=== PATIENT | female | born 1955 | race Caucasian/White ===

== ENCOUNTER → 2020-08-28 11:23 | Outpatient (CLI) | payer OTHER, SELFPAY ==
--- NOTE | ~2020-08-28 | XR_ITS ---
EXAMINATION: XR abdomen/kub 1V INDICATION: Abdominal swelling TECHNIQUE: Supine views of the abdomen were obtained on 2 radiographs. COMPARISON: None FINDINGS: The bowel gas pattern is normal. No dilated loops of bowel are evident. There is an expecte d volume of colonic stool. No abnormal calcification is identified. 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 IMPRESSION: 1. No radiographic correlate for the patient's symptoms. Reviewed, dictated and finalized at location A. ROLS DESIGNER
--- NOTE | ~2020-08-28 | XR_ITS ---
EXAMINATION: XR chest 2V DATE: 08/28/2020 12:00 INDICATION: Shortness of breath. TECHNIQUE: Frontal and lateral views of the chest were obtained. COMPARISON: None. FINDINGS: Calcified left lung nodules are consistent with old granulomatous disease. No pleural effus ion or pneumothorax. The heart size is normal. IMPRESSION: 1. No acute cardiopulmonary disease. Reviewed, dictated and finalized at location B. OWCASE TURNER
== END ==
PROVIDERS: PCP Family Medicine; Visit Provider Pediatrics
DX: R06.02 Shortness of breath (principal); R19.00 Intra-abdominal and pelvic swelling, mass and lump, unspecified site
CPT/HCPCS: 71046; 74018

== ENCOUNTER → 2023-07-01 12:56 | Outpatient (CLI) | payer OTHER, SELFPAY ==
--- NOTE | ~2023-07-01 | MM_ITS ---
EXAMINATION: MM screening owen BI w jan HISTORY: Screening mammogram TECHNIQUE: Craniocaudal and mediolateral oblique 3-D tomosynthesis images were obtained and synthetic 2-D images were generated. CAD analysis was submitted and interpreted. COMPARISON: 03/04/2019 bilateral screening mammogram BREAST PARENCHYMAL COMPOSITION: There are scattered areas of fibroglandular density. FINDINGS: Interval new asymmetric irregular density in the posterior lower inner right breast. Diagno stic right mammogram and right breast ultrasound examination are recommended. Otherwise no suspicious mass, architectural distortion, malignant calcification, skin thickening or r etraction or significant new or developing density of either breast is detected. IMPRESSION: 1. New asymmetric irregular density in the posterior lower inner right breast 2. Diagnostic right mammogram and right breast ultrasound examination are recommended BI-RADS Category 0: Incomplete: Needs additional imaging evaluation. Reviewed, dictated and finalized at location A. IMPRESSION: 1. New asymmetric irregular density in the posterior lower inner right breast 2. Diagnostic right mammogram and right breast ultrasound examination are recom mended BI-RADS Category 0: Incomplete: Needs additional imaging evaluation.
--- NOTE | ~2023-07-01 | DEXA_ITS ---
Bone Density Report Name: SHARAN KLINE Age: 67 Sex: Female Ethnicity: White Date of : 1955 Indication: osteopenia; postmenopausal Referring Provider: EVE, MICHELLE Daly Study: Bone densitometry was performed. Exam Date: July 01, 2023 Accession number: [id number] Bone Density: Region BMD T-score Z-score Classification AP Spine (L1-L4) 0.869 -1.6 0.3 Osteopenia Femoral Neck (Left) 0.697 -1.4 0.2 Osteopenia Total Hip (Left) 0.848 -0.8 0.5 Normal Femoral Neck (Right) 0.719 -1.2 0.4 Osteopenia Total Hip (Right) 0.807 -1.1 0.2 Osteopenia Total Hip Mean 0.828 -1.0 0.4 Normal World Health Organization criteria for BMD impression classify patients as: Normal (T-score at or above -1.0), Osteopenia (T-score between -1.0 and -2.5), or Osteoporosis (T-score at or below -2.5). 10-year Fracture Risk(1): Major Osteoporotic Fracture 8.6% Hip Fracture 0.8% Reported Risk Factors: [place] (), Neck BMD=0.697, BMI=29.9 (1) FRAX(R) Version 3.08. Fracture probability calculated for an untreated patient. Fracture probability may be lower if the patient has received treatment. Previous Exams: Region Exam Age BMD T-score BMD Change BMD Change Date g/cm2 vs Baseline vs Previous AP Spine(L1-L4) 07/01/2023 67 0.869 -1.6 -0.036* -0.020 06/05/2011 55 0.889 -1.4 -0.016 -0.016 02/14/2008 52 0.905 -1.3 Total Hip(Left) 07/01/2023 67 0.848 -0.8 0.011 0.041* 06/05/2011 55 0.807 -1.1 -0.030* -0.030* 02/14/2008 52 0.837 -0.9 Total Hip(Right) 07/01/2023 67 0.807 -1.1 -0.043* -0.026 06/05/2011 55 0.833 -0.9 -0.017 -0.017 02/14/2008 52 0.850 -0.8 *Denotes significance at 95% confidence level, LSC for AP Spine = 0.022 g/cm2, LSC for Total Hip = 0.027 g/cm2 Clinical Information Provided by Patient: Has used the following medications: Vitamin D Patient maximum height was 67 Menopause Age: 50 No regular weight bearing exercise Drinks caffeinated beverages Onset of menses at age 16 Number of children 1 Impression: The patient has low bone mass, based on the Total Spine T-score. The patient has an estimated ten-year risk of hip fracture of 0.8% and an estimated ten-year risk of major fracture of 8.6%, based on the WHO FRAX algorithm. No significant bone loss was observed. Discussion: BONE DENSITY IS LOW A
== END ==
PROVIDERS: PCP Family Medicine; Visit Provider Nurse Practitioner Family
DX: Z12.31 Encounter for screening mammogram for malignant neoplasm of breast (principal); Z78.0 Asymptomatic menopausal state; M85.89 Other specified disorders of bone density and structure, multiple sites
CPT/HCPCS: 77063; 77067; 77080

== ENCOUNTER → 2023-07-28 07:37 | Outpatient (CLI) | payer OTHER, SELFPAY ==
--- NOTE | ~2023-07-28 | US_ITS ---
Pelvic ultrasound. Clinical History: Pelvic pressure Technique: Realtime transabdominal and transvaginal scanning of the pelvis was performed. Color flow Doppler and Doppler spectral analysis were performed. Findings: The uterus is anteverted, and measures 4.6 x 1.9 x 3.0 cm. The endometrial stripe has a th ickness of approximately 3-4 mm. No focal mass is identified. Neither ovary seen. No adnexal mass seen. There is no evidence of free fluid in the cul de sac. Impression: No significant abnormality seen. Neither ovary visualized. Reviewed, dictated and finalized at location . OLOGY PHYSICIAN Impression: No significant abnormality seen. Neither ovary visualized.
--- NOTE | ~2023-07-28 | MMUS_ITS ---
EXAMINATION: MM diagnostic owen RT w jan, US breast RT limited HISTORY: Follow-up right breast mass TECHNIQUE: Additional 3-D tomosynthesis images of the right breast were performed and synthetic 2-D i mages were generated. CAD analysis was submitted and interpreted. High resolution Limited right breas t ultrasound was performed. COMPARISON: Comparison to multiple prior studies sequentially, with oldest reviewed study dated 06/19. BREAST PARENCHYMAL COMPOSITION: Breast composed of scattered areas of fibroglandular density FINDINGS: MAMMOGRAPHIC FINDINGS: There is a mass in the lower inner quadrant of the right breast posteriorly which is partially obscur ed by fibroglandular tissue. There are no suspicious calcifications. There is an adjacent low density mass in the lower inner quadrant. ULTRASOUND: Limited right breast ultrasound: At 6:00, 4.5 cm from the nipple, there is an irregular shaped hypoec hoic solid mass with posterior shadowing measuring 1.3 x 1.1 x 0.9 cm. There is an adjacent 8 mm hypo echoic mass at 6:00, 2 cm from the nipple with internal vascularity. IMPRESSION: 1. Ultrasound-guided right breast biopsy of dominant 1.3 cm mass at 6:00, 4.5 cm from the nipple janna mmended. BI-RADS CATEGORY 4-SUSPICIOUS ABNORMALITY Reviewed, dictated and finalized at location A. HEATER IMPRESSION: 1. Ultrasound-guided right breast biopsy of dominant 1.3 cm mass at 6:00, 4.5 c m from the nipple recommended. BI-RADS CATEGORY 4-SUSPICIOUS ABNORMALITY
== END ==
PROVIDERS: PCP Nurse Practitioner Family; Visit Provider Nurse Practitioner Family
DX: Z01.419 Encounter for gynecological examination (general) (routine) without abnormal findings (principal); R92.8 Other abnormal and inconclusive findings on diagnostic imaging of breast; I10 Essential (primary) hypertension; R73.03 Prediabetes; R10.9 Unspecified abdominal pain; K21.9 Gastro-esophageal reflux disease without esophagitis
CPT/HCPCS: 76642; 76856; 77061; 77065; G0279

== ENCOUNTER 2023-08-09 08:54 | Outpatient (CLI) | payer OTHER, SELFPAY ==
--- NOTE | ~2023-08-09 | MMUS_ITS ---
EXAMINATION: US GUIDED NEEDLE BIOPSY DATE: 08/09/2023 11:40 AIR DRILL OPERATOR INDICATION: Right breast 6:00 breast mass reported on 07/28/2023 limited right breast ultrasound exami [facility] TECHNIQUE AND FINDINGS: The risks and potential benefits of the procedure were discussed with the patient, and written inform ed consent was obtained. Timeout procedure was performed. After sterile preparation of the right jacquelyn st, 1% lidocaine was utilized for local anesthesia. A 12 G spring-loaded biopsy gun needle was advanced to the edge of the region of interest from a supe romedial approach utilizing sonographic guidance. A total of 5 tissue core samples were obtained thr ough the lesion. An Inrad tissue marker clip was then placed at the biopsy site. Hemostasis was achi eved. A sterile bandage was applied. The patient tolerated procedure well and there was no evidence of immediate complication. The patien t was given verbal instructions prior to departing from the department. A two view mammogram was perf ormed to document tissue marker clip placement. The tissue samples were submitted to surgical patholo gy for histologic analysis. IMPRESSION: Ultrasound guided biopsy of right 6:00 breast mass with biopsy marker placement. Please refer to path ology report for histologic analysis. Reviewed, dictated and finalized at Location A. Reviewed, dictated and finalized at location A. DRILL OPERATOR IMPRESSION: Ultrasound guided biopsy of right 6:00 breast mass with biopsy marker placement . Please refer to pathology report for histologic analysis.
== END 2023-08-09 08:55 | disposition home or self-care (01) ==
PROVIDERS: PCP Nurse Practitioner Family; Visit Provider Surgery
DX: N63.15 Unspecified lump in the right breast, overlapping quadrants (principal); D05.11 Intraductal carcinoma in situ of right breast
CPT/HCPCS: 19083; 88305; 88342; 88360; A4648

== ENCOUNTER 2023-08-23 12:05 | Outpatient (CLI) | payer OTHER, SELFPAY ==
[2023-08-23 12:18] LABS: Kit Draw Collected
== END 2023-08-23 12:06 | disposition home or self-care (01) ==
LOC: ANHLAB 12:08
PROVIDERS: PCP Nurse Practitioner Family; Visit Provider Internal Medicine Hematology & Oncology
DX: C50.811 Malignant neoplasm of overlapping sites of right female breast (principal)
CPT/HCPCS: 36415

== ENCOUNTER 2023-10-20 10:39 | Outpatient (CLI) | payer OTHER, SELFPAY ==
--- NOTE | 2023-10-20 10:49 | ECG_ITS ---
Measurements Intervals [place] Rate: 74 P: 32 DE: 140 QRS: 3 QRSD: 104 T: 3 QT: 357 QTc: 396 Interpretive Statements SINUS RHYTHM MINIMAL VOLTAGE CRITERIA FOR LVH, CONSIDER NORMAL VARIANT [MEETS CRITERIA IN ONE OF: R(aVL), S(V1), R(V5), R(V5/V6)+S(V1)] NO PREVIOUS ECG AVAILABLE FOR COMPARISON Electronically Signed On 10-20-2023 14:05:35 NURSING CLINICAL DIRECTOR by Breann Boateng M.D.
[2023-10-20 11:10] LABS: Hematocrit 35.8 % (37.0-47.0); Hemoglobin 11.4 g/dL (12.0-15.0)
[2023-10-20 11:23] LABS: Anion Gap 9 mmol/L (8-16); Blood Urea Nitrogen 16 mg/dL (7-17); Calcium 9.6 mg/dL (8.4-10.2); Carbon Dioxide 32 mmol/L (22-30); Chloride 101 mmol/L (98-107); Estimated Glomerular Filt Rate 55; Glucose 111 mg/dL (65-110); Potassium 3.7 mmol/L (3.4-5.0); Sodium 142 mmol/L (137-145)
== END 2023-10-20 10:40 | disposition home or self-care (01) ==
LOC: ANHSURGERY 10:44
PROVIDERS: Anesthesiology; PCP Nurse Practitioner Family; Visit Provider Surgery
DX: Z01.818 Encounter for other preprocedural examination (principal); C50.911 Malignant neoplasm of unspecified site of right female breast; I10 Essential (primary) hypertension
CPT/HCPCS: 36415; 80048; 85014; 85018; 86850; 86900; 86901; 93005

== ENCOUNTER 2023-10-26 00:39 | Day surgery (SDC) | payer OTHER, SELFPAY ==
--- NOTE | 2023-10-14 15:43 | PC.NURSE ---
Report to the Outpatient Waiting Room, entrance under the green pavilion located off [facility], at time __0600 on date _10/26/23 . Planned Procedure Time: _0730 . Time changes happen often and if your time is changed the preop area will call you the afternoon before. - You and your visitor will be asked to self-screen and do not enter if you have any COVID symptoms. - A mask is optional within the hospital at this time. NOTHING TO EAT OR DRINK 8 HOURS PRIOR TO SURGERY PER DR CARLSON (1130 PM 10/25/23) Take the following medications with a SIP of water the morning of surgery: ____NONE DO NOT STOP ANY OF YOUR OTHER PRESCRIPTION MEDICATIONS PRIOR TO SURGERY ?EXCEPT THE FOLLOWING Medications to discontinue per physician NONE Please no make-up, nail bengali, hairspray, perfume, deodorant, or body powder the day of surgery. No jewelry (including any body piercings) or valuables the day of surgery, leave them at home. Please take a shower or bath the night before, or the morning of, surgery with an antibacterial soap. Wear comfortable, loose fitting clothing. Children are encouraged to wear pajamas. - Jewelry must be removed prior to entering the operating room. Rings and piercings that are not removed may be cut off. - The hospital will not accept responsibility for valuables. - Please leave all valuables, including medications, at home the day of surgery. If you are going home after surgery, a licensed trash collector truck driver must drive you home. - NO public transportation without another adult if you receive anesthesia. - We recommend that an adult stay with you for 24 hours following discharge. - We also recommend that you do not drive, make important decision, drink alcoholic beverages, or take any drugs that were not prescribed by your health care provider for at least 24 hours after your discharge time. Follow any additional instructions given to you from your surgeon. If you or anyone in your household have experienced Covid symptoms in the past week, please notify your surgeon or the nurse liaison at the phone number below for possible testing. Telephone instructions given to __PATIENT and asked if any additional questions and then verbalized understanding. Patient advised to call surgeon office or pre surgery nurse liaison [phone] if any additional questions.
[2023-10-14 16:01] VITALS: BMI 29.0
[2023-10-26] VITALS (13 sets, daily range): BP systolic 132–168; BP diastolic 54–78; PULSE 67–95; RESP 12–18; TEMP 36–37; O2SAT 94–100
[2023-10-26] MEDS: ACETAMINOPHEN 500 MG TABLET 1000 MG PO (06:17)
[2023-10-26] MEDS: LIDOCAINE/PRILOCAINE CREAM 2.5-2.5% TUBE 1 EACH TOPICAL (06:19)
--- NOTE | 2023-10-26 06:53 | WPDHPUPDATE1 ---
History and Physical Update Update Date/Time: 10/26/23 06:53 Patient seen and examined in pre-operative holding area. No interval change in medical history or symptoms. Patient remembers previous discussion of benefits and alternatives to procedure. Continues to desire to proceed with immediate bilateral breast reconstruction with silicone implants and acellular dermal matrix possible mastopexy possible tissue account executive sales representative at time of mastectomy. I reviewed the risks including but not limited to bleeding ,infection, asymmetry, undesireable cosmetic appearance, partial/total skin/nipple loss, no change or worsening of symptoms, device failure, capsular contracturechange in sensation. I discussed the possible use of assistants and their level of participation in the case. Patient stated understanding and signed the consent form wishing to proceed
--- NOTE | 2023-10-26 06:54 | W.PM.PROC2 ---
Procedure Note - Detailed Date of Procedure 10/26/23 Pre-op Diagnosis right breast cancer Post-op Diagnosis Same (and acquired absence bilateral breasts) Procedure Performed bilateral breast recon with silicone implant, adm and mastopexy at time of mastectomy Surgeon Jorge De La Cruz MD Vault Keeper Mireille Miller PA-C Anesthesia General Description of Procedure Patient seen and examined in pre-op and consent signed and patient marked with her sitting for planned mastopexy to allow reduction in breast volume and adjust nipple placement utilizing an inferior based pedicle. Patient was taken back to the operating room and placed on the table in supine posiition. Time out was performed with anesthesia, surgeons and staff agreeing on patient's name, site and surgery to be performed. SCDs were placed on the lower extremities and inflated. Antibiotics were given IV. After general anesthesia was administered the breasts were prepped and draped in sterile fashion. I proceeded with further designing the bilateral breast incisions for planned mastopexy and then care was given to Dr. Hernandez who proceeded with the left nipple-sparing mastectomy with the assistance of Mireille Miller PA-C and myself. After completion of mastectomy, I irrigated with normal saline and hemostasis was performed with bovie cautery. I proceeded with sewing in a piece of large, contoured, perforated alloderm along inframammary fold and along the anterior axillary line with 2-0 vicryl suture. Various breast implant sizers were placed and detemined an [id number] implant would be appropriate for patient's reconstructive goals and not put unnecessary tension or pressure on the skin flaps. The sizer was removed. A 10 MALISSA drain was placed along IMF and an onq pump catheter was placed along the superior aspect of the breast pocket. I irrigated the pocekt with antibiotic irrigation again, prepped the skin with betadine,placed down new towels, changed our gloves and rinsed instruments in antibiotic irrigation. I then proceeded with placing a natrelle [id number]-[id number] implant SN [id number] into the left breast pocket in appropriate orientation and near complete anterior coverage with the alloderm. I proceeded with initial closure and tacking using 3-0 vicryl. Next, I proceeded with further creation of the mastopexy by marking and excising further skin and subcutaneous tissue on the superior skin flap to allow for superior placement of the nipple areolar complex which appeared viable on its inferior pedicle with good cap refill. I excised the redunant skin as marked and extended medially and laterally to further remove dog ears. This was sent for further pathology. The nipple was placed at 23cm from the sternal notch along the breast midline at prominent aspect of implant. The skin flaps were secured with 3-0 vicryl suture. To further support the nipple viability I de-epithelilized a semicircular pedicle on the superior skin flap and the NAC was sutured to this with 3-0 vircryl stuture. 4-0 monocryl was used for subcuticular closure. The drain was hooked to bulb suction and initial 10cc loading dose of 1%lido with epi and 0.5%marcaine plain was infused through the onq catheter. Next, Dr. Hernandez proceeded with the right sentinel lymph node biopsy and right mastectomy with the assistance of Mireille Miller PA-C and myself. After completion of the right nipple-sparing mastectomy, I irrigated with normal saline and hemostasis was performed with bovie cautery. I proceeded with sewing in a piece of large, contoured, perforated alloderm along inframammary fold and along the anterior axillary line with 2-0 vicryl suture. The [id number] cc sizer was placed and there appeared to be good placement and reasonable symmetry to the reconstructed left breast. The sizer was removed. A 10 MALISSA drain was placed along IMF and an onq pump catheter was placed along the superior aspect of the breast pocket. I irrigated the pocket wit
--- NOTE | 2023-10-26 06:56 | WPDANESEPPF ---
Anes - Initial Pre Proc Eval Procedure: Operation Date: 10/26/23 07:30 Proposed Procedures p Bilateral Nipple Sparing Mastectomy, [place] Lymph Node Injection, Right Axillary [place] Lymph Node Biopsy - Noelle Hernandez MD s Immediate Bilateral Breast Reconstruction with Silicone Implants, Accellular Dermal Matrix, Possible Tissue Hearing Health Technician Placement - Jorge De La Cruz MD Date/Time: 10/26/23 06:56 Surgeon: Noelle Hernandez MD Pre Op Diagnosis: breast CA Patient Data Age: 67 Gender: F Height: 1.68 m Weight: 81.7 kg Last Vital Signs Temp 98.6 F 10/26/23 06:37 Pulse 90 10/26/23 06:37 Resp 16 10/26/23 06:37 BP 152/60 H 10/26/23 06:37 Pulse Ox 99 10/26/23 06:37 O2 Del Method Room Air 10/26/23 06:37 Allergies Allergy/AdvReac Type Severity Reaction Status Date / Time Sulfa (Sulfonamide Allergy Severe Itching Verified 10/26/23 06:04 Antibiotics) aspirin Allergy Unknown Palpitation Verified 10/26/23 06:04 s Home Medications Medication Instructions Recorded Confirmed Type hydrochlorothiazide 12.5 mg tablet 12.5 mg PO DAILY 08/16/23 10/26/23 History losartan 100 mg tablet 100 mg PO DAILY 08/16/23 10/26/23 History omeprazole 40 mg capsule,delayed 40 mg PO DAILY 08/16/23 10/26/23 History release Patient hx anesthesia problems: post op nausea/vomiting Family hx anesthesia problems: none Results Review: All pre-operative results and documents have been reviewed as part of the pre-operative evaluation. [facility] Family History Family History (Updated 05/16/14 @ 07:13 by DOCTOR UNKNOWN) Grandparent Family history of malignant neoplasm Father Family history of coronary artery disease Mother Family history of atrial fibrillation Social History Social History (Updated 08/02/23 @ 09:10 by Stefani Parker MA) Smoking packs per day: 1 Smoking cigarettes per day: 20.0 Years smoked: 25 Smoking pack-years: 25.00 Smoking status: Former smoker Tobacco type: cigarettes Smoking end date: 09/19/89 Alcohol intake: never Lack of Transportation: No Lack of Food: Never True Concerned About Future Housing: No Difficulty Paying Gas/Electric Bills: No Difficulty Paying for Meds: No Currently Unemployed: No Education: Decline to Answer Difficulty w/ Childcare or Family Care: No Living arrangements: with family Spiritual care concerns: No Anes - Eval Final PreProcedure Day of Procedure 10/26/23 06:56 Patient weight: normal Heart: regular rate and rhythm Lungs: clear to auscultation Airway: Mallampati scale class II Neurological: alert and oriented Last oral intake: >/= 8 hours ASA classification: III Emergent: no Anesthetic plan: proceed Anesthesia type and monitoring: general ETT and standard monitoring Results Review: All pre-operative results and documents have been reviewed as part of the pre-operative evaluation. Informed Consent: The patient's anesthetic plan and its attendant risks and benefits were discussed with the patient/family/POA. Questions were solicited and answers provided to the satisfaction of the patient/family/POA.
--- NOTE | 2023-10-26 07:07 | WPDHPUPDATE1 ---
History and Physical Update Update Date/Time: 10/26/23 07:07 History and Physical has been reviewed, including an updated exam of the patient. There are NO changes in the patient's condition. Risks, benefits, and alternatives have been discussed and questions answered. Patient agrees to proceed with procedure.
[2023-10-26] MEDS: LACTATED RINGERS 1,000 ML 30 ML IV CONT ×3 (07:10→13:25)
[2023-10-26] MEDS: SCOPOLAMINE 1 MG PATCH 1 PATCH TRANSDERM (07:10)
[2023-10-26] MEDS: ceFAZolin 2 GM/D5W 50 ML 2 GM/50 ML BAG IVPB (07:43)
[2023-10-26] MEDS: METHYLENE BLUE 0.5% INJ 10 ML AMPULE IRRIGATION (07:51)
[2023-10-26] MEDS: BUPivacaine HCL 0.25% PF 30 ML VIAL INFILTRATE (08:09)
[2023-10-26] MEDS: NACL 0.9% IRRIG POUR BOTTLE 1,000 ML, GENTAMICIN SULFATE INJ 160 MG, ceFAZolin 2 GM IRRIGATION (08:10)
[2023-10-26] MEDS: LIDO 1%/EPINEPHRINE 1:100,000 50 ML VIAL 30 ML INFILTRATE (08:24)
--- NOTE | 2023-10-26 08:47 | SUR.OPER ---
LEFT BREAST START 08
--- NOTE | 2023-10-26 09:20 | SUR.OPER ---
0919 right breast with sentimag probe per Dr David keller.
--- NOTE | 2023-10-26 11:03 | SUR.OPER ---
left breast scf 415 exp 2028-04-11 [id number] destin heredia
--- NOTE | 2023-10-26 11:19 | W.PM.PROC2 ---
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 Right nipple sparing mastectomy 2. Prophylactic left nipple sparing mastectomy 3. Right sentinel lymph node injection with magtrace and methylene blue 4. Right sentinel lymph node biopsy Surgeon Noelle Hernandez MD Eyewear Manufacturing Tech Mireille Miller PA-C Anesthesia General Description of Procedure Patient was identified in the preoperative holding area brought to the operating room suite.? She was placed supine operating table sequential compression devices were applied. General anesthesia was induced without difficulty.?The right nipple areola area was prepped with alcohol and I injected 2 cc of Mag trace in the subareolar plane.? I also injected 2 cc of diluted methylene blue 50:50 in the subdermal plane of the periareola area.? Bilateral chest and right axillary areas were prepped draped in sterile fashion.? Decision was made to start with the left prophylactic side.? A adams hole transverse incision around the superior aspect of the nipple areolar complex was made as previously marked by Dr De La Cruz and dissection was carried down through the subcutaneous tissue and continued through the thin areolar tissue plane between the subcutaneous tissue with the breast tissue superiorly to the inferior border of the clavicle.? We then continued our dissection medially to the lateral aspect of the sternum, inferiorly to the inframammary fold and laterally to latissimus.? Once this was performed the breast tissue along with the pectoralis fascia was dissected off the pectoralis muscle posteriorly.? The mastectomy specimen was then marked short stitch superior long stitch lateral stitch lateral, and subareolar region inked for orientation.? The specimen was then sent to pathology as a fresh specimen.? Hemostasis was assured.? Attention was then turned to the right axilla.? The sentimag probe was used to find the area of highest radio activity in the right axilla, but no significant activity was detected.?A small curvilinear incision was made overlying the axillary region and dissection was carried down through the subcutaneous tissue and the clavipectoral fascia was incised.? I was able to identify a node that was blue.? This was gently grasped and excised using the LigaSure device, and sent to pathology as a permanent specimen.? No suspicious/enlarged lymph nodes were found, and the axilla was irrigated and hemostasis was assured.? The clavipectoral fascia was approximated with a running 3-0 Vicryl.? A adams hole superior areolar incision was again made around the right nipple areola area, and dissection was carried down to the subcutaneous tissue until the thin areolar tissue plane was encountered.? This was then dissected superiorly to the inferior aspect of the clavicle, medially to the lateral aspect of the sternum, laterally to the latissimus dorsi, and inferiorly to the inframammary fold.? The breast along with the pectoralis fascia was then dissected off the pectoralis muscle and the specimen was oriented with a short stitch superiorly, long stitch laterally, and subareolar region inked, and sent to pathology as the fresh specimen.? Hemostasis was assured.?The case was then turned over to Dr De La Cruz for the immediate reconstruction part. Please refer to his operative note for further details. All needles counts were correct as reported by the operating room staff. Patient tolerated the procedure well with no immediate complications. Estimated Blood Loss 40 Drains Yes Pathology Yes Complications No immediate complications Condition Stable Disposition PACU [facility] Billing Surgery - Charge Forward: Surgery Billing (CPT 92748 - RT, 26834 - 60, LT / [id number] / [id number])
[2023-10-26] MEDS: ceFAZolin SODIUM 1 GM VIAL IV PUSH (11:41)
--- NOTE | 2023-10-26 12:35 | SUR.OPER ---
PAIN PUMP WITH LEAK AND PHARMACY NOTIFIED/TO REPLACE ON-Q BALL PUMP IN PACU AND PACU AWARE.
[2023-10-26] MEDS: fentaNYL CITRATE INJ (*CRX) 100 MCG/2 ML VIAL 25 MCG IV PUSH ×4 (13:07→14:04)
[2023-10-26] MEDS: HYDROmorphone HCL INJ (*CRX) 1 MG/ML SYR IV PUSH (15:36)
[2023-10-26] MEDS: LACTATED RINGERS 1,000 ML 100 ML IV CONT (15:42)
[2023-10-27 00:42] VITALS: BP 147/68; PULSE 79; RESP 16; TEMP 36.7; O2SAT 96
[2023-10-27 05:00] VITALS: PULSE 86; RESP 16; O2SAT 95
[2023-10-27 05:36] VITALS: BP 137/63; PULSE 86; RESP 16; TEMP 36.9; O2SAT 95
[2023-10-27 07:40] VITALS: BP 147/69; PULSE 82; RESP 18; TEMP 37.3; O2SAT 97
[2023-10-27] MEDS: DOCUSATE SODIUM 100 MG CAPSULE PO (09:30)
[2023-10-27] MEDS: hydroCHLOROthiazide 12.5 MG CAPSULE PO (09:30)
[2023-10-27] MEDS: PANTOPRAZOLE 40 MG TABLET PO (09:30)
[2023-10-27] MEDS: LOSARTAN POTASSIUM 100 MG TABLET PO (09:30)
[2023-10-27] MEDS: CEPHALEXIN 500 MG CAPSULE PO (09:30)
== END 2023-10-27 12:30 | disposition home or self-care (01) ==
LOC: ANHSURGERY 14:04 → ANHOB2 15:04
PROVIDERS: Plastic Surgery; PCP Nurse Practitioner Family; Visit Provider Surgery
PROC: (CPT 19303; principal; 2023-10-26 07:30)
PROC: (CPT 19340; 2023-10-26 07:30)
DX: C50.911 Malignant neoplasm of unspecified site of right female breast (principal); D05.11 Intraductal carcinoma in situ of right breast; Z87.891 Personal history of nicotine dependence
CPT/HCPCS: 19303; 38900; 38525; 19340; 19316; 15777 ×2; 36415; 80048; 85014; 85018; 86850; 86900; 86901; 88305; 88307; 88342; 93005; 99199; A9270; C1713; J0330; J0690; J1100; J1170; J1200; J1580; J2250; J2405; J2704; J3010; J7120; Q9968

== ENCOUNTER 2023-12-08 08:59 | Day surgery (SDC) | payer OTHER, SELFPAY ==
[2023-12-08] VITALS (7 sets, daily range): BP systolic 110–152; BP diastolic 53–89; PULSE 59–100; RESP 12–16; TEMP 36.2–37.4; O2SAT 98–100
--- NOTE | 2023-12-08 10:00 | ED.WOUNDLAC ---
HPI - Wound/Laceration General Chief Complaint: Wound/Laceration <Desi Serrano PA-C - Last Filed: 12/08/23 11:15> Stated Complaint: POST OP WOUND <FIDEL Henley Last Filed: 12/08/23 11:15> Time Seen by Provider: 12/08/23 09:33 <FIDEL Henley Last Filed: 12/08/23 11:15> Source: patient and old records reviewed <FIDEL Henley Last Filed: 12/08/23 11:15> Mode of arrival: ambulatory <FIDEL Henley Last Filed: 12/08/23 11:15> Limitations: no limitations <FIDEL Henley Last Filed: 12/08/23 11:15> History of Present Illness HPI narrative: Patient is a 68-year-old female who presents the ED with report of wounds to breast. Patient reports she underwent bilateral mastectomy for breast CA on 10/[address] Hernandez with reconstructive surgery under Dr. De La Cruz. On Tuesday this past week, patient began noticing a pinhole opening along her surgical side of her left breast with some purulent drainage. She has followed up with Dr. De La Cruz this week and is scheduled to undergo repeat surgery today at 12:45 p.m. for debridement. Patient states there was issues with the insurance approving the surgery and she was referred to the ED for evaluation. Patient has also noticed a small wound to R lateral breast surgical incision. Denies fevers, chills, N/V, dizziness/LH. Patient has been on keflex for wounds. Taking this as prescribed. <FIDEL Henley Last Filed: 12/08/23 11:15> Related Data Home Medications: Home Medications Medication Instructions Recorded Confirmed hydrochlorothiazide 12.5 mg tablet 12.5 mg PO QAM 08/16/23 12/08/23 losartan 100 mg tablet 100 mg PO QAM 08/16/23 12/08/23 omeprazole 40 mg capsule,delayed 40 mg PO QAM 08/16/23 12/08/23 release <Desi Serrano PA-C - Last Filed: 12/08/23 11:15> Allergies/Adverse Reactions: Allergies Allergy/AdvReac Type Severity Reaction Status Date / Time Sulfa (Sulfonamide Allergy Severe Itching Verified 12/08/23 12:03 Antibiotics) aspirin Allergy Unknown Palpitation Verified 12/08/23 12:03 s <Desi Serrano PA-C - Last Filed: 12/08/23 11:15> Review of Systems Review of Systems: CONSTITUTIONAL: Denies fever, chills, or sweats. GASTROINTESTINAL: Denies abdominal pain, nausea, vomiting SKIN: See HPI MUSCULOSKELETAL: Denies back pain, extremity pain, myalgia. 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 ductal carcinoma of right breast <Desi Serrano PA-C - Last Filed: 12/08/23 11:15> Surgical History Surgical History: Surgical History History of mastectomy <Desi Serrano PA-C - Last Filed: 12/08/23 11:15> Family History Family History: Family History Grandparent Family history of malignant neoplasm Father Family history of coronary artery disease Mother Family history of atrial fibrillation <FIDEL Henley Last Filed: 12/08/23 11:15> Social History Social History: Social History Smoking packs per day: 0.5 Smoking cigarettes per day: 10.0 Years smoked: 19 Smoking pack-years: 9.50 Smoking status: Former smoker Tobacco type: cigarettes Smoking end date: 03/19/95 Alcohol intake: never Substance use: never Substance use type: does not use Lack of Transportation: No Lack of Food: Never True Concerned About Future Housi
[2023-12-08 11:09] LABS: Basophils Absolute Auto 0.1 K/mm3 (0.0-0.1); Basophils Percent Auto 0.7 % (0.2-1.2); Eosinophils Absolute Auto 0.1 K/mm3 (0-0.3); Eosinophils Percent Auto 1.7 % (0-4.4); Hematocrit 34.7 % (37.0-47.0); Hemoglobin 11.1 g/dL (12.0-15.0); Immature Granulocyte Absolute 0.03 K/mm3 (0.00-0.031); Immature Granulocyte Percent A 0.4 % (0-0.5); Lymphocytes Absolute Auto 1.32 K/mm3 (0.9-3.2); Lymphocytes Percent Auto 15.6 % (18.3-44.2); Mean Corpuscular Hemoglobin 29.3 pg (26-34); Mean Corpuscular Volume 91.6 fl (80-100); Mean Platelet Volume 9.3 fl (7.4-10.4); Monocytes Absolute Auto 0.6 K/mm3 (0.1-0.6); Monocytes Percent Auto 6.9 % (2.6-8.5); Neutrophils Absolute Auto 6.3 K/mm3 (1.3-6.7); Neutrophils Percent Auto 74.7 % (45.5-73.1); Platelet Count Result 287 k/mm3 (150-375); Red Blood Count 3.79 M/mm3 (4.2-5.4); Red Cell Distribution Width 13.5 % (11.5-14.5); White Blood Count 8.4 K/mm3 (4.5-10.0)
[2023-12-08 11:13] LABS: Alanine Aminotransferase 15 U/L (6-35); Albumin Level 4.3 g/dL (3.5-5.1); Alkaline Phosphatase 102 U/L (38-126); Anion Gap 3 mmol/L (8-16); Aspartate Amino Transferase 24 U/L (14-36); Bilirubin,Total 0.6 mg/dL (0.2-1.3); Blood Urea Nitrogen 15 mg/dL (7-17); Calcium 9.9 mg/dL (8.4-10.2); Carbon Dioxide 32 mmol/L (22-30); Chloride 105 mmol/L (98-107); Estimated CRCL calculation 43 ml/min; Estimated Glomerular Filt Rate 45; Glucose 116 mg/dL (65-110); INR 0.9; Potassium 3.5 mmol/L (3.4-5.0); Sodium 140 mmol/L (137-145)
[2023-12-08 11:14] LABS: Partial Thromboplastin Time 29.3 Seconds (22.3-36.8)
--- NOTE | 2023-12-08 12:08 | WPDHPUPDATE1 ---
History and Physical Update Update Date/Time: 12/08/23 12:08 Patient seen and examined in pre-operative holding area. No interval change in medical history or symptoms. Patient remembers previous discussion of benefits and alternatives to procedure. Continues to desire to proceed with left breast wound debridement, washout, possible implant removal/exchange and possible adjacent tissue transfer. I reviewed the risks including but not limited to bleeding ,infection, asymmetry, undesireable cosmetic appearance, partial/total skin/nipple loss, no change or worsening of symptoms, change in sensation. I discussed the possible use of assistants and their level of participation in the case. Patient stated understanding and signed the consent form wishing to proceed
--- NOTE | 2023-12-08 12:09 | P.OP_ITS ---
Procedure Note - Detailed Date of Procedure 12/08/23 Pre-op Diagnosis left breast wound and acquired absence left breast Post-op Diagnosis Same Procedure Performed left breast wound debridement, washout, implant exchange and local flap closure. Surgeon Jorge De La Cruz MD Detail Assembler Mireille Miller PA-C Anesthesia General Description of Procedure Patient was seen and examined in the preoperative holding area. The left breast was marked. The patient was consented. The patient was taken back to the operating room and placed on the table in the supine position. Time-out was performed with Anesthesia, surgeon, and staff agreeing on patient's names, site, and surgery to be performed. SCDs were placed on the lower extremities and inflated. Antibiotics were given IV. After general anesthesia was administered the breasts were prepped and draped in usual sterile fashion. I took my attention to the left breast where I used a 15 blade scalpel to make the incision around the nonviable eschar and affected tissue. It was noted that this involved the entire nipple-areolar complex which was nonviable. I excised this tissue back to healthy bleeding skin flaps. This consisted of skin and subcutaneous tissue. The implant was visible beneath this. There was a small 5-6 cm section of non adherent AlloDerm also visible underneath the non viable tissue. This unincorporated AlloDerm was sharply debrided. The intact silicone implant was removed. I proceeded with copious irrigation of the left breast pocket with antibiotic irrigation. The remainder of the AlloDerm appeared to be well incorporated. The new skin flap edges appeared healthy and viable with bleeding edges. I prepped the skin with Betadine and placed down fresh towels. Our gloves were changed and fresh instruments were then used. I proceeded with taking a Natgrzegorze [id number]-415 implant serial number [id number] directly from the package after rinsing in antibiotic irrigation placing it in its appropriate position in the left breast pocket. In order to reduce tension on closure I rotated the inferior skin flap laterally to improve closure at the defect site of the non- viable nipple areolar complex debridement site which had measured 4x5cm. I sharply excised the resulting dog ear so the flap could lie flat and bovie cautery for hemostasis. The wound was closed with 3-0 vicryl for dermis and 4-0 monocryl for subcuticular followed by 3-0 nylon interrupted along the incision for extra reinforcement. I injected 20cc 1%lido with epi and0.5%marcaine plain along anterior axillary line and inferior mammary fold. A dressing of mastisol, steri-strip, 4x4, abd and breast binder was applied. The patient was awaken from anesthesia and transferred to the recovery room in stable condition. Complications: None Estimated blood loss 5 cc Disposition: Patient tolerated the procedure well and will be going home later today Mireille Miller PA-C was essential for positioning, retraction, closure and dressing placement [facility] [place] - Charge Forward: Surgery Billing ([id number] amd for mireille adding modifier )
[2023-12-08] MEDS: LACTATED RINGERS 1,000 ML 30 ML IV CONT (12:36)
--- NOTE | 2023-12-08 12:48 | WPDANESEPP ---
Anes - Eval Pre Procedure Procedure: Operation Date: 12/08/23 12:45 Proposed Procedures p Left Breast Wound Debridement, Possible Implant Removal/Replacement, Possible Adjacent Tissue Transfer - Jorge De La Cruz MD Date/Time: 12/08/23 12:48 Surgeon: Dorothy Pre Op Diagnosis: POST OP WOUND Patient Data Age: 68 Gender: F Height: 1.68 m Weight: 79 kg Last Vital Signs Temp 37.4 C 12/08/23 12:28 Pulse 74 12/08/23 12:28 Resp 16 12/08/23 12:28 BP 123/53 L 12/08/23 12:28 Pulse Ox 99 12/08/23 12:28 O2 Del Method Room Air 12/08/23 12:28 Allergies Allergy/AdvReac Type Severity Reaction Status Date / Time Sulfa (Sulfonamide Allergy Severe Itching Verified 12/08/23 12:03 Antibiotics) aspirin Allergy Unknown Palpitation Verified 12/08/23 12:03 s Home Medications Medication Instructions Recorded Confirmed Type hydrochlorothiazide 12.5 mg tablet 12.5 mg PO QAM 08/16/23 12/08/23 History losartan 100 mg tablet 100 mg PO QAM 08/16/23 12/08/23 History omeprazole 40 mg capsule,delayed 40 mg PO QAM 08/16/23 12/08/23 History release cephalexin 500 mg capsule 500 mg PO Q8H #30 caps 12/05/23 12/08/23 Rx Laboratory Tests 12/08/23 10:50 WBC 8.4 K/mm3 (4.5-10.0) RBC 3.79 L M/mm3 (4.2-5.4) Hgb 11.1 L g/dL (12.0-15.0) Hct 34.7 L % (37.0-47.0) MCV 91.6 fl (80-100) MCH 29.3 pg (26-34) MCHC 32.0 g/dl (32-36) RDW 13.5 % (11.5-14.5) Plt Count 287 k/mm3 (150-375) MPV 9.3 fl (7.4-10.4) Immature Gran % (Auto) 0.4 % (0-0.5) Neut % (Auto) 74.7 H % (45.5-73.1) Lymph % (Auto) 15.6 L % (18.3-44.2) Dooly % (Auto) 6.9 % (2.6-8.5) Eos % (Auto) 1.7 % (0-4.4) Baso % (Auto) 0.7 % (0.2-1.2) Lymph # (Auto) 1.32 K/mm3 (0.9-3.2) Dooly # (Auto) 0.6 K/mm3 (0.1-0.6) Eos # (Auto) 0.1 K/mm3 (0-0.3) Baso # (Auto) 0.1 K/mm3 (0.0-0.1) Abs Immat Gran (auto) 0.03 K/mm3 (0.00-0.031) Absolute Neuts (auto) 6.3 K/mm3 (1.3-6.7) Absolute Nucleated RBC 0.000 K/mm3 (0.0-0.012) Nucleated RBC % 0.0 % (0.0-0.2) PT 13.0 Seconds (11.1-14.7) INR 0.9 APTT 29.3 Seconds (22.3-36.8) Sodium 140 mmol/L (137-145) Potassium 3.5 mmol/L (3.4-5.0) Chloride 105 mmol/L (98-107) Carbon Dioxide 32 H mmol/L (22-30) Anion Gap 3 L mmol/L (8-16) BUN 15 mg/dL (7-17) Creatinine 1.20 H mg/dL (0.7-1.0) Estim Creat Clear Calc 43 ml/min Estimated GFR 45 L (59 - ) Glucose 116 H mg/dL (65-110) Calcium 9.9 mg/dL (8.4-10.2) Total Bilirubin 0.6 mg/dL (0.2-1.3) AST 24 U/L (14-36) ALT 15 U/L (6-35) Alkaline Phosphatase 102 U/L (38-126) Total Protein 8.0 g/dL (6.3-8.2) Albumin 4.3 g/dL (3.5-5.1) Blood Type O Positive Antibody Screen Negative Patient hx anesthesia problems: none Family hx anesthesia problems: none Results Review: All pre-operative results and documents have been reviewed as part of the pre-operative evaluation. 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
--- NOTE | 2023-12-08 12:55 | P.PNAN_ITS ---
Anes - Eval Final PreProcedure Day of Procedure 12/08/23 12:55 Patient weight: overweight Heart: regular rate and rhythm Lungs: clear to auscultation Airway: Mallampati scale class II Neurological: alert and oriented Last oral intake: >/= 8 hours ASA classification: III Emergent: no Anesthetic plan: proceed Anesthesia type and monitoring: general LMA and standard monitoring Results Review: All pre-operative results and documents have been reviewed as part of the pre- operative evaluation. Informed Consent: The patient's anesthetic plan and its attendant risks and benefits were discussed with the patient/family/POA. Questions were solicited and answers provided to the satisfaction of the patient/family/POA.
[2023-12-08] MEDS: ceFAZolin 2 GM/D5W 50 ML 2 GM/50 ML BAG IVPB (13:02)
[2023-12-08] MEDS: NACL 0.9% IRRIG POUR BOTTLE 1,000 ML, GENTAMICIN SULFATE INJ 160 MG, ceFAZolin 2 GM IRRIGATION (13:49)
[2023-12-08] MEDS: LIDO 1%/EPINEPHRINE 1:100,000 50 ML VIAL 20 ML INFILTRATE (13:50)
--- NOTE | 2023-12-08 14:28 | SUR.PHASEI ---
1427: Simple mask removed.
== END 2023-12-08 15:37 | disposition home or self-care (01) ==
LOC: ANHED 11:03 → ANHSURGERY 12:32
PROVIDERS: Emergency Provider Physician Assistant; PCP Nurse Practitioner Family; Visit Provider Plastic Surgery
PROC: (CPT 19380; principal; 2023-12-08 12:45)
DX: T81.31XA Disruption of external operation (surgical) wound, not elsewhere classified, initial encounter (principal); Y83.8 Other surgical procedures as the cause of abnormal reaction of the patient, or of later complication, without mention of misadventure at the time of the procedure; Z90.10 Acquired absence of unspecified breast and nipple; Z85.3 Personal history of malignant neoplasm of breast; Z87.891 Personal history of nicotine dependence
CPT/HCPCS: 19380; 14001; 36415; 80053; 85025; 85610; 85730; 86850; 86900; 86901; 88300; 88305; 99285; A9270; C1789; J0690; J1580; J7120

== ENCOUNTER 2023-12-22 00:30 | Day surgery (SDC) | payer OTHER, SELFPAY ==
--- NOTE | 2023-12-20 15:42 | PC.NURSE ---
Report to the Outpatient Waiting Room, entrance under the green pavilion located off [facility], at time ___11:30AM____ on date __12/22/23 . Planned Procedure Time: __1:30PM . Time changes happen often and if your time is changed the preop area will call you the afternoon before. - You and your visitor will be asked to self-screen and do not enter if you have any COVID symptoms. - A mask is optional within the hospital at this time. Patients may have clear liquids (water, carbonated beverages, clear teas, apple juice) until 3 hours prior to surgery with a maximum of 20 ounces. - No food from midnight until time of surgery - Infants may have breast milk until 4 hours before surgery, infant formula 6 hours prior to surgery. - Children will be allowed to drink immediately following surgery. If applicable, please bring a bottle or sippy cup to assist with drinking. Juice, water, soda, and popsicles are readily available. For infants on formula, please bring formula the day of surgery. Pacifiers are allowed. Take the following medications with a SIP of water the morning of surgery: ___CEPHALEXIN DO NOT STOP ANY OF YOUR OTHER PRESCRIPTION MEDICATIONS PRIOR TO SURGERY ?EXCEPT THE FOLLOWING Medications to discontinue per physician ____NONE Date to take last dose Please no make-up, nail yakut, hairspray, perfume, deodorant, or body powder the day of surgery. No jewelry (including any body piercings) or valuables the day of surgery, leave them at home. Please take a shower or bath the night before, or the morning of, surgery with an antibacterial soap. Wear comfortable, loose fitting clothing. Children are encouraged to wear pajamas. - Jewelry must be removed prior to entering the operating room. Rings and piercings that are not removed may be cut off. - The hospital will not accept responsibility for valuables. - Please leave all valuables, including medications, at home the day of surgery. If you are going home after surgery, a licensed [employer] aut[employer] delivery driver must drive you home. - NO public transportation without another adult if you receive anesthesia. - We recommend that an adult stay with you for 24 hours following discharge. - We also recommend that you do not drive, make important decision, drink alcoholic beverages, or take any drugs that were not prescribed by your health care provider for at least 24 hours after your discharge time. For Pediatric surgeries, we recommend two adults accompany the child home. Follow any additional instructions given to you from your surgeon. If you or anyone in your household have experienced Covid symptoms in the past week, please notify your surgeon or the nurse liaison at the phone number below for possible testing. Telephone instructions given to ___PATIENT and asked if any additional questions and then verbalized understanding. Patient advised to call surgeon office or pre surgery nurse liaison [phone] if any additional questions.
[2023-12-22] VITALS (10 sets, daily range): BP systolic 110–151; BP diastolic 50–75; PULSE 60–82; RESP 12–20; TEMP 36.7–36.9; O2SAT 96–100
--- NOTE | 2023-12-22 08:57 | WPDANESEPPF ---
Anes - Initial Pre Proc Eval Procedure: Operation Date: 12/22/23 13:30 Proposed Procedures p Right Breast Wound Debridement, Possible Implant Removal/Replacement, Possible Adjacent Tissue Transfer - Jorge De La Cruz MD Date/Time: 12/22/23 08:57 Surgeon: Jorge De La Cruz MD Pre Op Diagnosis: open wound right breast with complications Patient Data Age: 68 Gender: F Height: Weight: Allergies Allergy/AdvReac Type Severity Reaction Status Date / Time Sulfa (Sulfonamide Allergy Severe Itching Verified 12/22/23 11:44 Antibiotics) aspirin Allergy Unknown Palpitation Verified 12/22/23 11:44 s Home Medications Medication Instructions Recorded Confirmed Type hydrochlorothiazide 12.5 mg tablet 12.5 mg PO QAM 08/16/23 12/22/23 History losartan 100 mg tablet 100 mg PO QAM 08/16/23 12/22/23 History omeprazole 40 mg capsule,delayed 40 mg PO QAM 08/16/23 12/22/23 History release hydrocodone 5 mg-acetaminophen 325 1 tablet PO Q8H PRN pain #6 tabs 12/08/23 12/20/23 Rx mg tablet cephalexin 500 mg capsule 500 mg PO Q8H #30 caps 12/12/23 12/22/23 Rx Patient hx anesthesia problems: none Family hx anesthesia problems: none Results Review: All pre-operative results and documents have been reviewed as part of the pre-operative evaluation. [facility] Past Medical History Medical History (Updated 12/22/23 @ 08:58 by Ramesh Gunter DO) Ductal carcinoma in situ (DCIS) of right breast GERD (gastroesophageal reflux disease) Invasive ductal carcinoma of right breast Panic attack Surgical History Surgical History (Updated 12/22/23 @ 08:58 by Ramesh Gunter DO) History of History of mastectomy Family History Family History Grandparent Family history of malignant neoplasm Father Family history of coronary artery disease Mother Family history of atrial fibrillation Social History Social History Smoking packs per day: 0.5 Smoking cigarettes per day: 10.0 Years smoked: 10 Smoking pack-years: 5.00 Smoking status: Former smoker Tobacco type: cigarettes Smoking end date: 03/19/92 Alcohol intake: never Substance use: never Substance use type: does not use Lack of Transportation: No Lack of Food: Never True Concerned About Future Housing: No Difficulty Paying Gas/Electric Bills: No Difficulty Paying for Meds: No Currently Unemployed: No Education: Decline to Answer Difficulty w/ Childcare or Family Care: No Living arrangements: with family Additional living arrangements comments: [facility]USB Spiritual care concerns: No Anes - Eval Final PreProcedure Day of Procedure 12/22/23 08:57 Patient weight: obese Heart: regular rate and rhythm Lungs: clear to auscultation Airway: Mallampati scale class III Neurological: alert and oriented Last oral intake: >/= 8 hours ASA classification: III Emergent: no Anesthetic plan: proceed Anesthesia type and monitoring: general LMA and standard monitoring Results Review: All pre-operative results and documents have been reviewed as part of the pre-operative evaluation. Informed Consent: The patient's anesthetic plan and its attendant risks and benefits were discussed with the patient/family/POA. Questions were solicited and answers provided to the satisfaction of the patient/family/POA.
[2023-12-22] MEDS: LACTATED RINGERS 1,000 ML 30 ML IV CONT ×2 (12:12→14:10)
--- NOTE | 2023-12-22 12:55 | WPDHPUPDATE1 ---
History and Physical Update Update Date/Time: 12/22/23 12:55 Patient seen and examined in pre-operative holding area. No interval change in medical history or symptoms. Patient remembers previous discussion of benefits and alternatives to procedure. Continues to desire to proceed with right breast wound exploration, debridement and washout, possible implant exchange. I reviewed the risks including but not limited to bleeding ,infection, asymmetry, undesireable cosmetic appearance, partial/total skin/nipple loss, no change or worsening of symptoms, change in sensation, device failure, capsular contracture. I discussed the possible use of assistants and their level of participation in the case. Patient stated understanding and signed the consent form wishing to proceed
--- NOTE | 2023-12-22 12:58 | W.PM.PROC2 ---
Procedure Note - Detailed Date of Procedure 12/22/23 Pre-op Diagnosis open wound right breast with complications Post-op Diagnosis Same Procedure Performed right breast wound debridement and washout with implant exchange. Surgeon Jorge De La Cruz MD Crap Game Box Person Vasiliy Miller PA-C Anesthesia General Description of Procedure Patient was seen in the preoperative holding area. Consent form was signed in the right breast was marked. She was taken back to the operating room and placed on the table in the supine position. Time-out was performed with Anesthesia, surgeon, and staff agree and patient's name, site, and surgery to be performed. SCDs were placed on the lower extremities and inflated. Antibiotics were given IV. After general anesthesia was administered the breasts were prepped and draped in the usual sterile fashion. I took my attention to the right breast were proceeded with making an incision around the eschar and open wound of the right breast done through skin and through dermis with a 15 blade scalpel. I proceeded with circumferential excision of this nonviable tissue off of areas of healthier appearing subcutaneous tissue. This exposed some AlloDerm which was not incorporated to the tissue under the wound. Using a [place] scissor I sharply excise this non adherent, nonviable AlloDerm from the wound bed. The meaurements of the resulting open wound were 10x4cm Her silicone implant was now visible and was removed. I cultured the small amount of serous fluid found within the pocket. The remainder of the AlloDerm appeared well incorporated and healthy. No biofilm was observed within the cavity. A irrigated copiously with antibiotic irrigation. Bovie was used for hemostasis. Satisfied that all unhealthy tissue had been debrided and irrigation and hemostasis was achieved I prepped the skin with Betadine and placed down fresh towels. We changed our gloves and rinsed our instruments and antibiotic irrigation. I then proceeded with taking Stefanye SCF-415 implant serial [id number] directly from the package after rinsing it in antibiotic irrigation and placing in the right breast pocket and appropriate orientation. I then proceeded with closure of the wound with 3-0 Vicryl suture for capsule and dermis. 4-0 Monocryl was used for subcuticular closure. 10 cc 1%lido with epi and 0.5% marcaine plain were used for local anesthesia A dressing of Mastisol, Steri-Strips, 4x4s, Tegaderm and ABDs was applied followed by a breast binder. The patient was then awakened from anesthesia and transferred to the recovery room in stable condition. Complications: None Estimated blood loss: 2 cc Disposition: Patient tolerated the procedure well and will be going home later today. Vasiliy Miller PA-C was essential for positioning, retraction, closure and dressing placement [facility] [place] Billing Surgery - Charge Forward: Surgery Billing ([id number] same for vasiliy adding modifier )
[2023-12-22] MEDS: ceFAZolin 2 GM/D5W 50 ML 2 GM/50 ML BAG IVPB (13:10)
[2023-12-22] MEDS: NACL 0.9% IRRIG POUR BOTTLE 1,000 ML, GENTAMICIN SULFATE INJ 160 MG, ceFAZolin 2 GM IRRIGATION (13:41)
[2023-12-22] MEDS: LIDO 1%/EPINEPHRINE 1:100,000 20 ML VIAL 4.5 ML INFILTRATE (14:03)
[2023-12-22] MEDS: BUPivacaine HCL 0.5% PF 30 ML VIAL 4.5 ML INFILTRATE (14:04)
[2023-12-22] MEDS: oxyCODONE HCL (*CRX) 5 MG TAB IR PO (15:48)
== END 2023-12-22 16:27 | disposition home or self-care (01) ==
PROVIDERS: PCP Nurse Practitioner Family; Visit Provider Plastic Surgery
PROC: (CPT 11042; principal; 2023-12-22 13:30)
DX: T81.31XA Disruption of external operation (surgical) wound, not elsewhere classified, initial encounter (principal); N64.1 Fat necrosis of breast; Z85.3 Personal history of malignant neoplasm of breast; K21.9 Gastro-esophageal reflux disease without esophagitis; F41.0 Panic disorder [episodic paroxysmal anxiety]; E66.9 Obesity, unspecified; Z68.45 Body mass index [BMI] 70 or greater, adult; Y83.8 Other surgical procedures as the cause of abnormal reaction of the patient, or of later complication, without mention of misadventure at the time of the procedure; Z79.891 Long term (current) use of opiate analgesic; Z90.13 Acquired absence of bilateral breasts and nipples; Z87.891 Personal history of nicotine dependence; Z80.9 Family history of malignant neoplasm, unspecified; Z82.49 Family history of ischemic heart disease and other diseases of the circulatory system
CPT/HCPCS: 11042; 11045; 19342; 87101; 88300; 88305; A9270; C1789; J0690; J1100; J1580; J2405; J3010; J7120

== ENCOUNTER 2024-03-09 11:27 | Outpatient (CLI) | payer OTHER, SELFPAY ==
[2024-03-09 11:44] LABS: Basophils Percent Auto 0.4 % (0.2-1.2); Eosinophils Absolute Auto 0.2 K/mm3 (0-0.3); Eosinophils Percent Auto 2.4 % (0-4.4); Hematocrit 34.3 % (37.0-47.0); Immature Granulocyte Absolute 0.03 K/mm3 (0.00-0.031); Immature Granulocyte Percent A 0.3 % (0-0.5); Lymphocytes Absolute Auto 2.07 K/mm3 (0.9-3.2); Lymphocytes Percent Auto 23.3 % (18.3-44.2); Mean Corpuscular HGB Conc 32.1 g/dl (32-36); Mean Corpuscular Hemoglobin 28.8 pg (26-34); Mean Corpuscular Volume 89.8 fl (80-100); Mean Platelet Volume 8.2 fl (7.4-10.4); Monocytes Absolute Auto 0.6 K/mm3 (0.1-0.6); Neutrophils Absolute Auto 5.9 K/mm3 (1.3-6.7); Neutrophils Percent Auto 66.6 % (45.5-73.1); Platelet Count Result 290 k/mm3 (150-375); Red Blood Count 3.82 M/mm3 (4.2-5.4); Red Cell Distribution Width 13.3 % (11.5-14.5); White Blood Count 8.9 K/mm3 (4.5-10.0)
[2024-03-09 11:45] LABS: Blood Urea Nitrogen 16 mg/dL (8-26); Carbon Dioxide 31 mmol/L (22-30); Chloride 102 mmol/L (98-109); Estimated Glomerular Filt Rate 55; Glucose 102 mg/dL (70-105); Ionized Calcium (POC) 1.14 mmol/L (1.11-1.31); Potassium 3.8 mmol/L (3.5-4.9); Sodium 142 mmol/L (138-146)
[2024-03-09 13:37] LABS: Iron 46 ug/dL (37-170)
[2024-03-09 13:41] LABS: Alanine Aminotransferase 22 U/L (6-35); Albumin Level 4.4 g/dL (3.5-5.1); Alkaline Phosphatase 104 U/L (38-126); Anion Gap 8 mmol/L (4-12); Aspartate Amino Transferase 36 U/L (14-36); Bilirubin,Total 0.5 mg/dL (0.2-1.3); Blood Urea Nitrogen 18 mg/dL (7-17); Calcium 9.2 mg/dL (8.4-10.2); Carbon Dioxide 28 mmol/L (22-30); Chloride 105 mmol/L (98-107); Estimated Glomerular Filt Rate 55; Glucose 98 mg/dL (65-110); Potassium 3.8 mmol/L (3.4-5.0); Sodium 141 mmol/L (137-145)
[2024-03-09 13:47] LABS: Percent Iron Saturation 14 % (20-50)
[2024-03-09 14:54] LABS: Folic Acid > 20.0 ng/mL (2.76->20)
[2024-03-15 16:15] LABS: Soluble Transferrin Receptor 1.76 mg/L (0.76-1.76)
== END 2024-03-09 11:28 | disposition home or self-care (01) ==
LOC: ANHLAB 11:29
PROVIDERS: PCP Nurse Practitioner Family; Visit Provider Internal Medicine Hematology & Oncology
DX: C50.811 Malignant neoplasm of overlapping sites of right female breast (principal)
CPT/HCPCS: 36415; 80047; 80053; 82607; 82728; 82746; 83540; 83550; 84238; 85025; 86300

== ENCOUNTER 2024-03-13 10:37 | Outpatient (CLI) | payer OTHER, SELFPAY ==
--- NOTE | ~2024-03-13 | XR_ITS ---
XR hip BI wo pelvis Ordering provider: Evelyne Dubon MD History: . bilateral hip pain for 2 monhs, no injury . Comparison: None. FINDINGS: BONES: No acute fracture or dislocation. HIP JOINT SPACES: Normal. SACROILIAC JOINT SPACES/LUMBAR SPINE: The sacroiliac joint spaces are normal. Mild degenerative braswell es of the visualized lower lumbar spine. PUBIC SYMPHYSIS: Normal. SOFT TISSUES: Normal. IMPRESSION: No acute osseous abnormality of the bilateral hips and pelvis. Reviewed, dictated and finalized at location A.
== END 2024-03-13 10:38 ==
LOC: MICIMG 10:39
PROVIDERS: PCP Family Medicine; Visit Provider Family Medicine
DX: M25.551 Pain in right hip (principal); M25.552 Pain in left hip; I10 Essential (primary) hypertension
CPT/HCPCS: 73521

== ENCOUNTER 2024-05-01 10:56 | Outpatient (CLI) | payer OTHER, SELFPAY ==
--- NOTE | ~2024-05-01 | XR_ITS ---
EXAM: XR shoulder RT min 2V, XR shoulder LT min 2V DATE: 05/01/2024 11:26 HISTORY: SHOULDER PAIN . COMPARISON: None available. FINDINGS: Decreased mineralization. No fracture or dislocation. No lytic or blastic lesion. Mild samia ateral AC joint hypertrophy. Very minimal right-sided glenohumeral osteophytosis. Mild bilateral acro mial tip enthesopathy. No erosion or periosteal change. Soft tissues within normal limits. IMPRESSION: Osteopenia. There are mild bilateral AC joint and minimal right glenohumeral joint osteoa rthritis. Otherwise unremarkable bilateral shoulder radiograph findings. Reviewed, dictated and finalized at location K. IMPRESSION: Osteopenia. There are mild bilateral AC joint and minimal right gle nohumeral joint osteoarthritis. Otherwise unremarkable bilateral shoulder radio graph findings.
--- NOTE | ~2024-05-01 | XR_ITS ---
XR cervical spine 4-5V Ordering provider: Evelyne Dubon MD History: . NECK PAIN . Comparison: None. FINDINGS: VERTEBRAL BODIES: Normal height and alignment. No visible fracture or subluxation. The dens is intact . DISK SPACES: Narrowing of the disc C5-C6. Uncovertebral joint osteoarthritic changes at the level of C5-C6. PARASPINOUS SOFT TISSUES: No prevertebral soft tissue swelling. IMPRESSION: No acute osseous abnormality cervical spine. Reviewed, dictated and finalized at location A.
== END 2024-05-01 10:57 ==
PROVIDERS: PCP Family Medicine; Visit Provider Family Medicine
DX: M19.012 Primary osteoarthritis, left shoulder (principal); M19.011 Primary osteoarthritis, right shoulder; M85.89 Other specified disorders of bone density and structure, multiple sites
CPT/HCPCS: 72050; 73030

== ENCOUNTER 2024-05-10 07:40 | Outpatient (CLI) | payer OTHER, SELFPAY ==
--- NOTE | ~2024-05-10 | MR_ITS ---
EXAMINATION: MR cervical spine wo con DATE: 05/10/2024 08:14 INDICATION: Neck pain. TECHNIQUE: Magnetic resonance imaging (MRI) of the cervical spine was performed without intravenous c ontrast. COMPARISON: Cervical spine radiographs 05/01/24 FINDINGS: Bone alignment is normal. Vertebral body heights are normal. There is mildly decreased disc itis at C4-C5 and severely decreased disc height at C5-C6. The spinal cord signal intensity is normal . The following disc levels are specifically discussed: C2-C3: The disc does not extend beyond the endplate margin. There is no uncovertebral joint osteoarth ritis. There is mild bilateral facet joint osteoarthritis. There is no neural foraminal stenosis. The re is no central canal stenosis. C3-C4: There is a central extrusion. There is mild bilateral uncovertebral joint osteoarthritis. Ther e is mild right facet joint osteoarthritis. There is mild right neural foraminal stenosis. There is s evere central canal stenosis with ventral and dorsal indentation of the spinal cord. C4-C5: There is a central extrusion. There is moderate right and mild left uncovertebral joint osteoa rthritis. There is mild bilateral facet joint osteoarthritis. There is mild bilateral neural foramina l stenosis. There is severe central canal stenosis with ventral and dorsal indentation of the spinal cord. C5-C6: The disc is bulging. There is severe bilateral uncovertebral joint osteoarthritis. There is no facet joint osteoarthritis. There is moderate bilateral neural foraminal stenosis. There is moderate central canal stenosis with ventral and dorsal indentation of the spinal cord. C6-C7: There is a central extrusion. There is mild bilateral uncovertebral joint osteoarthritis. Ther e is mild bilateral facet joint osteoarthritis. There is mild left neural foraminal stenosis. There i s mild central canal stenosis with ventral indentation of the spinal cord. C7-T1: The disc does not extend beyond the endplate margin. There is mild bilateral uncovertebral samanta nt osteoarthritis. There is mild bilateral facet joint osteoarthritis. There is no neural foraminal s tenosis. There is no central canal stenosis. IMPRESSION: 1. Severe cervical spondylosis. Reviewed, dictated and finalized at location A.
== END 2024-05-10 07:41 ==
LOC: MICIMG 07:40
PROVIDERS: PCP Family Medicine; Visit Provider Family Medicine
DX: M47.892 Other spondylosis, cervical region (principal)
CPT/HCPCS: 72141

== ENCOUNTER 2024-06-15 10:41 | Outpatient (CLI) | payer OTHER, SELFPAY ==
[2024-06-15 10:57] LABS: Basophils Percent Auto 0.4 % (0.2-1.2); Eosinophils Absolute Auto 0.3 K/mm3 (0-0.3); Eosinophils Percent Auto 2.9 % (0-4.4); Hematocrit 33.9 % (37.0-47.0); Hemoglobin 10.8 g/dL (12.0-15.0); Immature Granulocyte Absolute 0.04 K/mm3 (0.00-0.031); Immature Granulocyte Percent A 0.4 % (0-0.5); Lymphocytes Absolute Auto 2.12 K/mm3 (0.9-3.2); Lymphocytes Percent Auto 23.3 % (18.3-44.2); Mean Corpuscular HGB Conc 31.9 g/dl (32-36); Mean Corpuscular Volume 91.1 fl (80-100); Monocytes Absolute Auto 0.6 K/mm3 (0.1-0.6); Monocytes Percent Auto 6.9 % (2.6-8.5); Neutrophils Percent Auto 66.1 % (45.5-73.1); Platelet Count Result 311 k/mm3 (150-375); Red Blood Count 3.72 M/mm3 (4.2-5.4); Red Cell Distribution Width 14.3 % (11.5-14.5); White Blood Count 9.1 K/mm3 (4.5-10.0)
[2024-06-15 15:54] LABS: Alanine Aminotransferase 32 U/L (6-35); Albumin Level 4.4 g/dL (3.5-5.1); Alkaline Phosphatase 94 U/L (38-126); Anion Gap 11 mmol/L (4-12); Aspartate Amino Transferase 29 U/L (14-36); Bilirubin,Total 0.5 mg/dL (0.2-1.3); Blood Urea Nitrogen 19 mg/dL (7-17); Calcium 9.6 mg/dL (8.4-10.2); Carbon Dioxide 28 mmol/L (22-30); Chloride 103 mmol/L (98-107); Estimated Glomerular Filt Rate > 60; Glucose 94 mg/dL (65-110); Potassium 4.7 mmol/L (3.4-5.0); Sodium 142 mmol/L (137-145)
[2024-06-15 15:55] LABS: Iron 51 ug/dL (37-170)
[2024-06-15 16:03] LABS: Percent Iron Saturation 16 % (20-50)
[2024-06-15 17:03] LABS: Folic Acid > 20.0 ng/mL (2.76->20)
[2024-06-25 13:53] LABS: Soluble Transferrin Receptor 1.67 mg/L (0.76-1.76)
== END 2024-06-15 10:42 | disposition home or self-care (01) ==
LOC: ANHLAB 10:43
PROVIDERS: PCP Family Medicine; Visit Provider Internal Medicine Hematology & Oncology
DX: D64.9 Anemia, unspecified (principal)
CPT/HCPCS: 36415; 80053; 82607; 82728; 82746; 83540; 83550; 84238; 85025

== ENCOUNTER 2024-06-22 11:15 | Outpatient (CLI) | payer OTHER, SELFPAY ==
[2024-06-26 11:55] LABS: CA 15-3 19 U/mL (<32)
== END 2024-06-22 11:16 | disposition home or self-care (01) ==
PROVIDERS: PCP Family Medicine; Visit Provider Internal Medicine Hematology & Oncology
DX: C50.811 Malignant neoplasm of overlapping sites of right female breast (principal)
CPT/HCPCS: 36415; 86300

== ENCOUNTER 2024-10-23 08:55 | Outpatient (CLI) | payer OTHER, SELFPAY ==
[2024-10-23 09:06] LABS: Basophils Absolute Auto 0.1 K/mm3 (0.0-0.1); Basophils Percent Auto 0.8 % (0.2-1.2); Eosinophils Absolute Auto 0.2 K/mm3 (0-0.3); Eosinophils Percent Auto 3.4 % (0-4.4); Hematocrit 35.2 % (37.0-47.0); Hemoglobin 11.1 g/dL (12.0-15.0); Immature Granulocyte Absolute 0.01 K/mm3 (0.00-0.031); Immature Granulocyte Percent A 0.2 % (0-0.5); Lymphocytes Absolute Auto 1.75 K/mm3 (0.9-3.2); Lymphocytes Percent Auto 27.3 % (18.3-44.2); Mean Corpuscular HGB Conc 31.5 g/dl (32-36); Mean Corpuscular Hemoglobin 29.9 pg (26-34); Mean Corpuscular Volume 94.9 fl (80-100); Mean Platelet Volume 9.2 fl (7.4-10.4); Monocytes Absolute Auto 0.5 K/mm3 (0.1-0.6); Monocytes Percent Auto 7.8 % (2.6-8.5); Neutrophils Absolute Auto 3.9 K/mm3 (1.3-6.7); Neutrophils Percent Auto 60.5 % (45.5-73.1); Platelet Count Result 266 k/mm3 (150-375); Red Blood Count 3.71 M/mm3 (4.2-5.4); Red Cell Distribution Width 13.7 % (11.5-14.5); White Blood Count 6.4 K/mm3 (4.5-10.0)
--- OUTSIDE RECORDS SUMMARY | 2024-10-23 09:14 | XMS_ITS | Clinical Summary ---
Author Organization [facility] Address [address] [place] [address]. [place], [place] [id number] [place] [address] Care Team Providers Care Director Enterprise Data [employer] Name Role Phone Unavailable Primary Care Provider Unavailabl e Social History Tobacco Use Types Packs/Day Years Used Date Smoking Tobacco: Never Assessed Comments Unknown Sex and Gender Information Value Date Recorded Sex Assigned at Not on file Legal Sex Female 4:47 PM CDT Gender Identity Not on file Sexual Orientation Not on file Plan of Treatment Health Maintenance Due Date Last Done Comments Colorectal Cancer Screening Colonoscopy (10 Years) 1956 Hepatitis C 1974 DTaP, Tdap and Td Vaccines ( 1 - Tdap) 12/08/1975 Mammogram Screening 1996 Zoster Vaccines (1 of 2) 2006 Dexa Scan (General) 2021 Pneumococcal Vaccine: 65+ Ye ars (1 of 1 - PCV) 2021 COVID-19 Vaccine ( - 2023-2 5 season) 2024 Influenza Adult (#1) 2024 RSV Immunization or 60+ Years (1 - 1-dose 75+ series) 12/08/2031 Meningococcal B Vaccine Aged Out No l onger eligible based on patient's age to complete this topic Meningococcal Vaccine Aged Out No janeth gale eligible based on patient's age to complete this topic RSV Immunizations Under 20 Months Aged Out No longer eligible based on patient's age to complete this topic
--- OUTSIDE RECORDS SUMMARY | 2024-10-23 09:14 | XMS_ITS | Clinical Summary ---
Author Organization [facility] Karen Logan Address [address] [place] [address] Care Team Providers Care Rating Examiner Name Role Phone Evelyne Dubon MD Primary Care Provider Allergies Active Allergy Reactions Criticality Noted Date Comments Aspirin Arrhythmia High 08/23/2023 Sulfa (Sulfonamide Antibiotics) Itching Low 01/2023 Medications losartan (COZAAR) 100 mg tablet Take 100 mg by mouth daily. Active omeprazole (PriLOSEC) 40 mg Capsule, Delayed Release(E.C.) Take 40 mg by mouth daily. Active hydroCHLOROthiazi de 12.5 mg tablet Take 12.5 mg by mouth daily. Active zolpidem (AMBIEN) 5 mg tabletIndications :Insomnia, unspecified type Take 1 Tablet (5 mg) by mouth nightly as needed for Insomnia. 20 Tablet 3 Active anastrozole (ARIMIDEX) 1 mg tablet Take 1 Tablet (1 mg) by mouth daily. 90 Tablet 5 4 Active CALCIUM-MAGNESIUM ORAL Take by mouth. Active CALCIUM CARBONATE-VITAMIN D3 ORAL Take by mouth. Active geriatric multivitamin with iron & minerals (UNICAP SENIOR) Tablet Take 1 Tablet by mouth daily. Active DULoxetine (CYMBALTA) 60 mg Capsule, Delayed Release(E.C.) Take 60 mg by mouth daily at bedtime. 4 Active gabapentin (NEURONTIN) 300 mg capsule Take 1 Capsule by mouth 3 times daily. 4 Active cyclobenzaprine (FLEXERIL) 5 mg Tablet Take 1 Tablet by mouth 3 times daily. 4 Active diclofenac sodium (VOLTAREN) 75 mg Tablet, Delayed Release (E.C.) Take 1 Tablet by mouth daily. Active cyanocobalamin (VITAMIN B-12) 500 mcg tablet Take 500 mcg by mouth daily. Active multivitamin (DAILY-NEVILLE) tablet Take 1 Tablet by mouth daily. Active Active Problems No known active problems Encounters Date Type Department Care Team Description 10/10/2024 External Device Data [facility] ABSTRACTION Provider, Abstract from Last 3 Months Family History Medical History Relation Name Comments Heart Disease Father Diabetes Mother Heart Disease Mother Cancer Sister 1 Relation Name Status Comments Brother 1 Alive Brother 2 Alive Brother 3 Alive Daughter Alive Father Mother Sister 1 Alive Sister 2 Alive Sister 3 Alive Social History Tobacco Use Types Packs/Day Years Used Date Smoking Tobacco: Former Cigarettes Q uit: 1992 Smokeless Tobacco: Never Tobacco Cessation:Counseling Given: Not Answered Alcohol Use Standard Drinks/Week Comments Not Currently 0 (1 standard drink = 0.6 oz pur e alcohol) Comments Unknown Sex and Gender Information Value Date Recorded Sex Assigned at Not on file Legal Sex Female 2:51 PM CREDIT RISK MODELER Gender Identity Not on file Sexual Orientation Not on file Last Filed Vital Signs Vital Sign Reading Time Taken Comments Blood Pressure 128/67 06/22/2024 12:16 PM CDT Pulse 91 06/22/2024 12:16 PM CDT Temperature 36.7 ??C (98 ??F) 06/22/2024 12:16 PM CDT Respiratory Rate 18 06/22/2024 12:16 PM CDT Oxygen Saturation 95% 06/22/2024 12:16 PM CDT Inhaled Oxygen Concentration - - Weight 85.3 kg (188 lb) 06/22/2024 12:16 PM CDT Height 170.2 cm (5' 7 ) 08/23/2023 10:32 AM CREDIT RISK MODELER Body Mass Index 29.44 08/23/2023 10:32 AM CREDIT RISK MODELER Plan of Treatment Upcoming Encounters Date Type Department Care Team (Late st Contact Info) Description 10/30/2024 1:15 PM CREDIT RISK MODELER Office Visit [facility] Oncology and Hematology - [place] [address] [place] [address] Gerry Hunter MD [address] [facility] [address] [place] [address] Health Maintenance Due Date Last Done Comments Pre-Diabetes and Diabetes Screening 1955 DTAP/TDAP/TD VACCINES (1 - Tdap) 12/08/1975 BREAST CANCER SCREENING 1996 COLORECTAL SCREENING 2001 Colorectal Cancer Screening 2001 FIT-DNA Q 3 years 2001 FIT/FOBT Q 1 year 2001 Flex Sig/CT Colonography Q 5 years 2001 PNEUMOCOCCAL VACCINE 65+ YEARS (1 of 1 - PCV) 12/08/19 07 ZOSTER VACCINE (1 of 2) 2006 OSTEOPOROSIS SCREENING 2021 INFLUENZA VACCINE (#1) 2024 Preventative Visit- Commercial 09/19/2024 RSV VACCINE (60+ or ) (1 - 1-dose 75+ series) 12/08/2031 Insurance [employer] [id number] Member Subscriber Plan / Payer (Ef fective 2022-Present) Name:SHARAN ALBERTS Relation to Subscriber:Spouse Name:ANDRA ALBERTS Date of :1954 (Home) Address: [address] [place] [address] Payer ID:[id number] (NAIC) Type:HMO Address: [facility] [id number] [place] [id number] Care Teams Rating Examiner Relationship Specialty Start Date End Date Evelyne Dubon MD [address] [place] [address] PCP - General Family Practice 08/23/23
[2024-10-23 15:40] LABS: Alanine Aminotransferase 27 U/L (6-35); Albumin Level 4.3 g/dL (3.5-5.1); Alkaline Phosphatase 86 U/L (38-126); Anion Gap 8 mmol/L (4-12); Aspartate Amino Transferase 30 U/L (14-36); Bilirubin,Total 0.5 mg/dL (0.2-1.3); Blood Urea Nitrogen 24 mg/dL (7-17); Calcium 9.7 mg/dL (8.4-10.2); Carbon Dioxide 30 mmol/L (22-30); Chloride 103 mmol/L (98-107); Estimated Glomerular Filt Rate 57; Glucose 89 mg/dL (65-110); Potassium 4.2 mmol/L (3.4-5.0); Sodium 141 mmol/L (137-145)
[2024-10-25 01:28] LABS: CA 15-3 18 U/mL (<32)
== END 2024-10-23 08:56 | disposition home or self-care (01) ==
LOC: ANHLAB 08:55
PROVIDERS: PCP Family Medicine; Visit Provider Internal Medicine Hematology & Oncology
DX: C50.811 Malignant neoplasm of overlapping sites of right female breast (principal)
CPT/HCPCS: 36415; 80053; 85025; 86300

== ENCOUNTER 2025-02-21 08:13 | Outpatient (CLI) | payer OTHER, SELFPAY ==
[2025-02-21 13:32] LABS: Basophils Percent Auto 0.5 % (0.2-1.2); Eosinophils Absolute Auto 0.2 K/mm3 (0-0.3); Hematocrit 34.4 % (37.0-47.0); Hemoglobin 11.1 g/dL (12.0-15.0); Immature Granulocyte Absolute 0.02 K/mm3 (0.00-0.031); Immature Granulocyte Percent A 0.2 % (0-0.5); Lymphocytes Absolute Auto 1.93 K/mm3 (0.9-3.2); Mean Corpuscular HGB Conc 32.3 g/dl (32-36); Mean Corpuscular Hemoglobin 30.2 pg (26-34); Mean Corpuscular Volume 93.7 fl (80-100); Monocytes Absolute Auto 0.5 K/mm3 (0.1-0.6); Neutrophils Absolute Auto 5.7 K/mm3 (1.3-6.7); Neutrophils Percent Auto 68.3 % (45.5-73.1); Platelet Count Result 279 k/mm3 (150-375); Red Blood Count 3.67 M/mm3 (4.2-5.4); Red Cell Distribution Width 14.2 % (11.5-14.5); White Blood Count 8.4 K/mm3 (4.5-10.0)
[2025-02-21 15:03] LABS: Alanine Aminotransferase 23 U/L (6-35); Albumin Level 4.3 g/dL (3.5-5.1); Alkaline Phosphatase 88 U/L (38-126); Anion Gap 9 mmol/L (4-12); Aspartate Amino Transferase 39 U/L (14-36); Bilirubin,Total 0.3 mg/dL (0.2-1.3); Blood Urea Nitrogen 19 mg/dL (7-17); Calcium 9.6 mg/dL (8.4-10.2); Carbon Dioxide 27 mmol/L (22-30); Chloride 105 mmol/L (98-107); Estimated Glomerular Filt Rate 48; Glucose 135 mg/dL (65-110); Potassium 4.5 mmol/L (3.4-5.0); Sodium 141 mmol/L (137-145); Total Protein 7.5 g/dL (6.3-8.2)
[2025-02-23 03:38] LABS: CA 15-3 19 U/mL (<32)
== END 2025-02-21 08:14 | disposition home or self-care (01) ==
PROVIDERS: PCP Family Medicine; Visit Provider Internal Medicine Hematology & Oncology
DX: C50.811 Malignant neoplasm of overlapping sites of right female breast (principal)
CPT/HCPCS: 36415; 80053; 85025; 86300

== ENCOUNTER 2025-06-13 08:27 | Outpatient (CLI) | payer MEDICARE, SELFPAY ==
--- NOTE | ~2025-06-13 | XR_ITS ---
EXAMINATION: XR wrist RT min 3V, 06/13/2025 8:50 CDT HISTORY: Right wrist pain COMPARISON: No comparisons available. Findings: No acute fracture or malalignment. No significant degenerative changes. Soft tissues unremarkable. Impression: No acute fracture or malalignment. Reviewed, dictated and finalized at location A. Impression: No acute fracture or malalignment.
== END 2025-06-13 08:28 | disposition home or self-care (01) ==
LOC: MICIMG 08:30
PROVIDERS: PCP Family Medicine; Visit Provider Family Medicine
DX: M25.531 Pain in right wrist (principal)
CPT/HCPCS: 73110

== ENCOUNTER 2025-06-25 10:41 | Outpatient (CLI) | payer MEDICARE, SELFPAY ==
[2025-06-25 10:55] LABS: Hematocrit 36.2 % (37.0-47.0); Hemoglobin 11.1 g/dL (12.0-15.0); Immature Granulocyte Percent A 0.3 % (0-0.5); Lymphocytes Absolute Auto 2.08 K/mm3 (0.9-3.2); Mean Corpuscular HGB Conc 30.7 g/dl (32-36); Mean Corpuscular Hemoglobin 29.2 pg (26-34); Mean Corpuscular Volume 95.3 fl (80-100); Nucleated Red Blood Cells Absolute Auto 0.000 K/mm3 (0.0-0.012); Nucleated Red Blood Cells Perc 0.0 % (0.0-0.2); Platelet Count Result 286 k/mm3 (150-375); Red Blood Count 3.80 M/mm3 (4.2-5.4); White Blood Count 8.0 K/mm3 (4.5-10.0)
--- OUTSIDE RECORDS SUMMARY | 2025-06-25 11:43 | XMS_ITS | Clinical Summary ---
Author Organization [facility] Address [address] [place] [address] Care Team Providers Care Radio Performer Name Role Phone Unavailable Primary Care Provider [...] 1 - Tdap) 12/08/1975 Mammogram Screening 1996 Pneumococcal Vaccine: 50+ Ye ars (1 of 1 - PCV) 2006 Zoster Vaccines (1 of 2) 2006 Dexa Scan (General) 2021 COVID-19 Vaccine (2023-2 5 season) 2025 Influenza Adult (#1) 2025 RSV Immunization or 60+ Years (1 - [...]
--- OUTSIDE RECORDS SUMMARY | 2025-06-25 11:43 | XMS_ITS | Clinical Summary ---
Author Organization [facility] Karen Logan Address [address] [place] [address] Care Team Providers Care Dental Billing Specialist Name Role Phone Evelyne Dubon MD Primary [...] Take 12.5 mg by mouth daily. Active CALCIUM-MAGNESIUM ORAL Take by mouth. Active CALCIUM CARBONATE-VITAMIN D3 ORAL Take by mouth. Active geriatric multivitamin with iron & minerals (UNICAP SENIOR) Tablet Take 1 Tablet by mouth daily. Active DULoxetine (CYMBALTA) 60 mg Capsule, Delayed Release(E.C.) Take 90 mg by mouth daily at bedtime. 4 Active cyclobenzaprine (FLEXERIL) 5 mg Tablet Take 1 Tablet by mouth 3 times daily. 4 Active diclofenac sodium (VOLTAREN) 75 mg Tablet, Delayed Release (E.C.) Take 1 Tablet by mouth daily. 4 Active cyanocobalamin (VITAMIN B-12) 500 mcg tablet Take 500 mcg by mouth daily. Active multivitamin (DAILY-NEVILLE) tablet Take 1 Tablet by mouth daily. Active pregabalin (LYRICA) 100 mg Capsule Take 1 Capsule by mouth 2 times daily. 5 Active Active Problems No known active problems Encounters Date Type Department Care Team Description 06/04/2025 External Device Data [facility] ABSTRACTION Provider, Abstract 05/28/2025 External Device Data [facility] ABSTRACTION Provider, Abstract 04/24/2025 External Device Data [facility] ABSTRACTION Provider, Abstract 04/23/2025 External Device Data [facility] ABSTRACTION Provider, Abstract 04/03/2025 External Device Data [facility] ABSTRACTION Provider, Abstract 04/03/2025 External Device Data [facility] ABSTRACTION Provider, Abstract 04/02/2025 External Device Data [facility] ABSTRACTION Provider, Abstract [...] on file Legal Sex Female 2:51 PM MANAGER FOREIGN Gender Identity Not on file Sexual Orientation Not on file Last Filed Vital Signs Vital Sign Reading Time Taken Comments Blood Pressure 129/72 02/27/2025 2:25 PM CDT Pulse 95 02/27/2025 2:25 PM CDT Temperature 36.7 C (98.1 F) 02/27/2025 2:25 PM CDT Respiratory Rate 15 02/27/2025 2:25 PM CDT Oxygen Saturation 96% 02/27/2025 2:25 PM CDT Inhaled Oxygen Concentration - - Weight 86.5 kg (190 lb 9.6 oz) 02/27/2025 2:25 P M CDT Height 170.2 cm (5' 7) 08/23/2023 10:32 AM MANAGER FOREIGN Body Mass Index 29.85 08/23/2023 10:32 AM MANAGER FOREIGN Plan of Treatment Upcoming Encounters Date Type Department Care Team (Late st Contact Info) Description 07/01/2025 2:15 PM CDT Office Visit [facility] Oncology and Hematology - [place] [address] [place] [address] Gerry Hunter MD [address] [facility] [address] [place] [id number] Health Maintenance Due Date Last Done Comments Pre-Diabetes and Diabetes Screening 1955 DTAP/TDAP/TD VACCINES (1 - Tdap) 12/08/1975 COLORECTAL SCREENING 2001 Colorectal Cancer Screening 2001 FIT-DNA Q 3 years 2001 FIT/FOBT Q 1 year 2001 Flex Sig/CT Colonography Q 5 years 2001 PNEUMOCOCCAL VACCINE 50+ YEARS (1 of 1 - PCV) 12/08/19 07 ZOSTER VACCINE (1 of 2) 2006 OSTEOPOROSIS SCREENING 2021 Preventative Visit- Commercial 09/19/2024 INFLUENZA VACCINE (#1) 2025 RSV VACCINE (60+ or ) (1 - 1-dose 75+ series) 12/08/2031 Insurance [employer] [id number] Care Teams Dental Billing Specialist Relationship Specialty Start Date End Date Evelyne Dubon MD [address] [place] [address] PCP - General Family Practice 08/23/23
--- OUTSIDE RECORDS SUMMARY | 2025-06-25 11:43 | XMS_ITS | Patient Health Record ---
Author Organization [facility] Address [address] [place] [phone] Care Team Providers Care Design Analyst Name Role Phone Dr. Evelyne Dubon Primary Care Provider [phone] Dulce Quiles Unavailable [phone] Migration, Provider Unavailable Unavailable Allergies Allergen (clinical drug ingredient) Drug/Non Drug Allergy documented on EMR Reaction Allergy Type Onset Date Status aspirin Aspirin Unknown Drug Allergy 03/10/2023 Active Substance with sulfonamide structure and antibacterial mechanism of action (substance) Sulfa Antibiotics Unknown Drug Allergy 03/10/2023 Active Results Component Value Reference Range Flag Notes YAYA Comprehensive Plus Profi le Reviewed date:08/09/2024 12:00:00 AM Interpretation: Performing Lab: Notes/Report: Anti-Centromere B Antibodies <0.2 AI Anti-DNA (DS) Ab Qn 11 IU/mL Anti-Annelise-1 <0.2 AI Antichromatin Antibodies <0.2 AI Antiribosomal P Antibodies <0.2 AI Antiscleroderma-70 Antibodies <0.2 AI BEAM CARRIER HAULER PUSHER Antibodies <0.2 AI See below: Comment Sjogren's Anti-SS-A <0.2 AI Sjogren's Anti-SS-B 0.3 AI Fregoso Antibodies <0.2 AI Fregoso/BEAM CARRIER HAULER PUSHER Antibodies <0.2 AI YAYA w/Reflex Reviewed date:08/09/2024 12:00:00 AM Interpretation: Performing Lab: Notes/Report: YAYA by IFA Rfx Titer/Pattern Positive CCP Antibodies IgG/IgA Reviewed date:08/09/2024 12:00:00 AM Interpretation: Performing Lab: Notes/Report: Anti-CCP Ab, IgG/IgA 8 units Complement C3, Serum Reviewed date:08/11/2024 12:00:00 AM Interpretation: Performing Lab: Notes/Report: Complement C3, Serum 222 mg/dL Complement C4, Serum Reviewed date:08/11/2024 12:00:00 AM Interpretation: Performing Lab: Notes/Report: Complement C4, Serum 31 mg/dL Creatine Kinase,Total Reviewed date:08/09/2024 12:00:00 AM Interpretation: Performing Lab: Notes/Report: Creatine Kinase,Total 38 U/L MUSTAPHA+DNA/DS+Antich+Centro+FA. .. Reviewed date:08/09/2024 12:00:00 AM Interpretation: Performing Lab: Notes/Report: Note: Comment Speckled Pattern 1:160 Rheumatoid Arthritis Factor Reviewed date:08/09/2024 12:00:00 AM Interpretation: Performing Lab: Notes/Report: Rheumatoid Factor (RF) <10.0 IU/mL Sedimentation Rate-Westergre n Reviewed date:08/09/2024 12:00:00 AM Interpretation: Performing Lab: Notes/Report: Sedimentation Rate-Westergren 49 mm/hr Written Authorization Reviewed date:08/11/2024 12:00:00 AM Interpretation: Performing Lab: Notes/Report: Written Authorization Comment X ray : Wrist, right Reviewed date:06/13/2025 09:23:02 AM Interpretation: Performing Lab: Notes/Report: Vitamin B12 Folate Reviewed date:06/01/2025 09:46:03 AM Interpretation: Performing Lab: Notes/Report: Test Performed by: Lurdesomar Gaitan [place] [id number] Feed Crusher Operator: Kei Elise DO Vitamin B12 Lvl 429 180-914 pg/mL Vitamin B12 Interpretation: Normal Range: 180-914 pg/mL Indeterminate: 140-180 pg/mL Deficient: <140 pg/mL Folate Lvl 12.8 5.9-24.8 ng/mL Iron Level and TIBC Reviewed date:06/01/2025 09:46:03 AM Interpretation: Performing Lab: Notes/Report: Test Performed by: [address] [address] Feed Crusher Operator: Kei Elise DO Iron Lvl 35 50-212 mcg/dL L Transferrin 289 203-362 mg/dL TIBC 404 250-420 mcg/dL Iron Sat 9 20-55 % L Uric Acid Reviewed date:06/01/2025 09:46:03 AM Interpretation: Performing Lab: Notes/Report: Test Performed by: [place] [address] Feed Crusher Operator: Kei Elise DO Uric Acid 8.9 2.3-6.6 mg/dL H Magnesium Reviewed date:06/01/2025 09:46:03 AM Interpretation: Performing Lab: Notes/Report: Test Performed by: [place] [address] Feed Crusher Operator: Kei Elise DO Magnesium Lvl 2.2 1.6-2.4 mg/dL Lipid Panel {Chol, Trig, HDL , LDL} Reviewed date:06/01/2025 09:46:03 AM Interpretation: Performing Lab: Notes/Report: Test Performed by: [place] [address] Feed Crusher Operator: Kei Elise DO Cholesterol Total 255 <=199 mg/dL H Triglycerides 176 0-149 mg/dL H Triglyceride Reference Ranges: <150 mg/dL Normal 150 - 199 mg/dL Borderline High 200 - 499 mg/dL High >=500 mg/dL Very High LDL 178 <=100 mg/dL H LDL Optimal: <100 Near or above optimal: 100-129 Borderline high: 130-159 High: 160-189 Very high: >=190 Coronary heart disease risk factors should be considered when determining LDL goals. Please refer to ATPIII guidelines for further information. If LDL is not calculated, please call the lab to add on the direct LDL methodology, if desired. HDL 42 23-92 mg/dL Non HDL Cholesterol 213 <=130 mg/dL H Chol/HDL 6 0-5 H Comprehensive Metabolic Pane l Reviewed date:06/01/2025 09:46:03 AM Interpretation: Performing Lab: Notes/Report: Test Performed by: [place] [address] Feed Crusher Operator: Kei Elise DO Glucose Lvl 92 74-109 mg/dL ADA risk stratification for diabetes <100 mg/dL = Normal 100-125 mg/dL = Increased risk for future diabetes >=126 mg/dL = Diabetes, if on more than one testing occasion BUN 20 7-25 mg/dL Creatinine Lvl 1.25 0.60-1.20 mg/dL H eGFR CKD-EPI 47 >=90 mL/min/1.73 m2 L The CKD-EPI equation is validated in individuals 18 years of age and older. It is less accurate in patients with extremes of muscle mass, restriction of dietary protein, ingestion of creatine, extra-renal metabolism of creatinine, or treatment with medications that affect renal tubular creatinine secretion. GFR Categories in Chronic Kidney Disease (CKD) GFR GFR (mL/min/1.73 Category: square meters): Interpretation: G1 90 or greater Normal or high* G2 60-89 Mild decrease* G3a 45-59 Mild to moderate decrease G3b 30-44 Moderate to severe decrease G4 15-29 Severe decrease G5 14 or less Kidney failure *In the absence of evidence of kidney damage, neither GFR category G1 nor G2 fulfill the criteria for CKD (Kidney Int Suppl 2013;3:1-150) Calcium Lvl 9.9 8.6-10.3 mg/dL Sodium Lvl 141 136-145 mmol/L Potassium Lvl 4.9 3.5-5.1 mmol/L Chloride Lvl 103 98-107 mmol/L CO2 30 21-31 mmol/L Anion Gap 8.5 <=16.0 mmol/L Alk Phos 99 34-104 unit/L Bilirubin Total 0.4 0.3-1.0 mg/dL Albumin Lvl 4.4 3.5-5.2 g/dL Protein Total 7.5 6.4-8.9 g/dL Albumin/Globulin Ratio 1.4 1.1-2.5 ALT 16 7-52 unit/L AST 17 13-39 unit/L CBC w Auto Diff Reviewed date:06/01/2025 09:46:03 AM Interpretation: Performing Lab: Notes/Report: Test Performed by: Lurdes Gaitan [address] [address] Feed Crusher Operator: Kei Elise DO WBC 8.8 4.0-11.7 K/mcL RBC 4.18 3.80-5.41 x10*6/mcL Hgb 12.0 11.3-15.2 g/dL Hct 36.7 33.2-45.3 % MCV 87.8 79.5-98.1 fL MCH 28.7 27.0-34.2 pg MCHC 32.7 31.8-35.3 g/dL RDW 15.5 12.0-16.4 % Platelets 366 149-393 K/mcL MPV 7.7 7.0-11.0 fL Neutro Auto 68.7 45.3-79.0 % Lymph Auto 20.9 11.8-45.9 % Young Auto 7.6 4.4-12.0 % Eosinophil Auto 2.3 0.0-6.3 % Basophil Auto 0.5 0.2-1.6 % Neutro Absolute 6.1 2.4-8.4 x10*3/mcL Lymph Absolute 1.9 0.8-3.7 x10*3/mcL Young Absolute 0.7 0.3-1.1 x10*3/mcL Eos Absolute 0.2 0.0-0.5 x10*3/mcL Erythrocyte Sedimentation Ra te Reviewed date:06/01/2025 09:46:03 AM Interpretation: Performing Lab: Notes/Report: Test Performed by: [place] [address] Feed Crusher Operator: Kei Elise DO ESR, Westergren 87 0-30 mm/hr H Ferritin Reviewed date:06/01/2025 09:46:03 AM Interpretation: Performing Lab: Notes/Report: Test Performed by: [place] [address] Feed Crusher Operator: Kei Elise DO Ferritin Lvl 40.5 11.0-306.8 ng/mL Hemoglobin A1c {Glycosylated } Reviewed date:06/01/2025 09:46:03 AM Interpretation: Performing Lab: Notes/Report: Test Performed by: [place] [address] Feed Crusher Operator: Kei Elise DO Hemoglobin A1c 5.9 <=6.4 % Hemoglobin A1C < 5.7% = Normal 5.7-6.4% = Increased risk for future diabetes >=6.5% = Diabetes eAvg Glucose 123 <=117 mg/dL H eAG Reference Range <117 mg/dL = Normal 117-137 mg/dL = Increased Risk For Future Diabetes >137 mg/dL = Diabetes Reason For Referral Reason joint pain , positiv e YAYA Diagnosis 1 Pain in unspecified joint (M25.50) Diagnosis 2 Myalgia, unspecified site (M79.10) Diagnosis 3 Elevated antinuclear antibody (YAYA) level (R76.8) Referral Organization [facility] Referring Provider First Name Dr. Stubbs Referring Provider Last Name [place] Referring Provider [facility] kwabena Referred Provider Specialty Rheumatology General Notes Jeanette Marinelli 10/17 03:37:47 PM NURSING SUPPORT WORKER >Dr Rodas in [place]., Yessenia Chavez 11/02/2024 10:00:19 AM NURSING SUPPORT WORKER >Called office and left message to try and get fax number. Also faxed referral to Dr. Canales before seeing this needed to go to Dr. Rodas, Yessenia Chavez 11/02/2024 10:03:14 AM NURSING SUPPORT WORKER >Spoke with pt and updated her. She was okay with referral going to [facility] Kaitlin 12/11/2024 01:01:05 PM CDT >please check on status of referral, Yessenia Chavez 01/22/2025 11:26:46 AM CDT >Pt scheduled for 04/09/25 @2p Referral Priority Routine Referral Appointment Date 04/09/2025 Medications Medication SIG (Take, Route, Frequency, Duration) Notes Start Date End Date Status Adult Multivitamin (w-lutein) oral; Duration: 0 *Reorder from [employer] for eRx and Interaction Alerts* 08/06/2024 Active Allopurinol 100 MG Tablet 1 tablet Orally Once a day; Duration: 30 days Active DULoxetine HCl 30 MG Capsule Delayed Release Particles TAKE 1 CAPSULE BY MOUTH EVERY NIGHT AT BEDTIME Once a day; Duration: 30 days Active Colchicine 0.6 MG Tablet Take 2 tablets now and then 1 tablet one hour later Orally; Duration: 1 days 06/01/2025 Active Pregabalin 100 MG Capsule TAKE 1 CAPSULE BY MOUTH TWICE DAILY; Duration: 30 02/27/2025 Active Olmesartan Medoxomil 40 MG Tablet 1 tablet Orally Once a day; Duration: 30 days Active Vitamin B12 1000 MCG Tablet 1/2 tablet Orally Once a day 02/01/2025 Active Vitamin D3 250 MCG (00955 UT) Capsule 1 capsule Orally Once a day Active DULoxetine HCl 60 MG Capsule Delayed Release Particles 1 capsule Orally Once a day; Duration: 90 days Active Diclofenac Sodium 75 MG Tablet Delayed Release 1 tablet Orally daily; Duration: 90 days Active Omeprazole 20 MG Capsule Delayed Release TAKE 1 CAPSULE BY MOUTH EVERY DAY; Duration: 90 Active Ferrous Sulfate 325 (65 Fe) MG Tablet 1 tablet Orally Three times a Week Active Immunizations Vaccine Route Administration Date Status Comme nts Zoster SC Subcutaneous 01/27/2017 Administered Source VFC Code: : Zoster IM Intramuscular 08/20/2024 Administered ,sourc ename : New immunization record ,immstatus : Complete Tdap IM Intramuscular 01/21/2017 Administered Source VFC Code: : Shingrix IM Intramuscular 01/07/2025 Administered RSV-MAb (Respiratory syncytial virus immune globulin) IM Intramuscular 06/21/2024 Administered ,sourcename : New immunization record ,immstatus : Complete Pneumococcal 20 Unknown 03/12/2024 Administered Moderna Covid-19 Vaccine 1st dose IM Intramuscular 11/30/2020 Administered Source VFC Code: : Moderna Covid-19 Vaccine 1st dose IM Intramuscular 12/28/2020 Administered Source VFC Code: : Moderna Covid-19 Vaccine 1st dose IM Intramuscular 07/27/2021 Administered Source VFC Code: : Influenza, MDCK, quadrivalent, PF IM Intramuscular 07/27/2021 Administered Source VFC Code: : Influenza, high dose seasonal IM Intramuscular 07/03/2024 Administered ,sourcename : Historical information -source unspecified ,immstatus : Complete Social History Tobacco Use: Social History Observation Description Date Details (start date - stop date) Never Smoker NA - NA Social History Household: Social Info Question Answer Notes Household Marital status: Tobacco Use: Social Info Question Answer Notes Tobacco Control (Standard) Tobacco use: Nonsmoker Additional Details Category Social Info Options Details Drug/Alcohol: Do you drink alcohol? No Problems Problem Type SNOMED Code ICD Code Onset Dates Problem Status W/U Status Risk Notes Problem Localized, primary osteoarthritis of the shoulder region (537477408) Primary osteoarthritis, right shoulder (M19.011) 08/06/20 Active confirmed Problem Joint pain (94354552) Pain in unspecified joint (M25.50) 08/06/20 Active confirmed Problem Shoulder joint pain (962579990) Pain in left shoulder (M25.512) 07/09/20 Active confirmed Problem Shoulder joint pain (159869203) Pain in unspecified shoulder (M25.519) 03/12/20 Active confirmed Problem Pain of left hip joint (finding) (928074666288305) Pain in left hip (M25.552) 03/12/20 Active confirmed Problem Problem, abnormal examination (04431446) Encounter for general adult medical examination with abnormal findings (Z00.01) 03/10/20 Active confirmed Problem Gynecological examination normal (142860044961200) Encounter for gynecological examination (general) (routine) without abnormal findings (Z01.419) 07/05/20 Active confirmed Problem Imaging result abnormal (877064656) Abnormal findings on diagnostic imaging of other specified body structures (R93.89) 05/11/20 Active confirmed Problem Essential hypertension (28926143) Essential (primary) hypertension (I10) 06/09/20 Active confirmed Problem Hyperuricemia without signs of inflammatory arthritis and tophaceous disease (125822802) Hyperuricemia without signs of inflammatory arthritis and tophaceous disease (E79.0) 03/21/20 Active confirmed Problem Anemia (153035218) Anemia, unspecified (D64.9) 03/12/20 Active confirmed Problem Prediabetes (514793355) Prediabetes (R73.03) 04/08/20 Active confirmed Problem Lump in right breast (42053683361501041 ) Unspecified lump in the right breast, unspecified quadrant (N63.10) 07/29/20 Active confirmed Problem Muscle pain (25199379) Myalgia, unspecified site (M79.10) 03/12/20 Active confirmed Problem Postmenopausal state (91847559) Asymptomatic menopausal state (Z78.0) 03/10/20 Active confirmed Problem Vaccination given (913399713) Encounter for immunization (Z23) 03/12/20 Active confirmed Problem Screening for malignant neoplasm of breast (324800456) Encounter for screening mammogram for malignant neoplasm of breast (Z12.31) 03/10/20 Active confirmed Problem Adult health examination (644970849) Encounter for general adult medical examination without abnormal findings (Z00.00) 03/12/20 Active confirmed Problem Abnormal findings on diagnostic imaging of breast (093135494) Other abnormal and inconclusive findings on diagnostic imaging of breast (R92.8) 07/05/20 Active confirmed Problem Abnormal immunology finding (575375494) Other specified abnormal immunological findings in serum (R76.8) 08/10/20 Active confirmed Problem Erythrocyte sedimentation rate raised (256364595) Elevated erythrocyte sedimentation rate (R70.0) 08/10/20 Active confirmed Problem Paresthesia (finding) (92193774) Paresthesia of skin (R20.2) 06/21/20 Active confirmed Problem Abdominal pain (54875012) Unspecified abdominal pain (R10.9) 07/05/20 Active confirmed Problem Hand pain (96988580) Pain in unspecified hand (M79.643) 08/06/20 Active confirmed Problem Cervicalgia (84382328) Cervicalgia (M54.2) 04/30/20 Active confirmed Problem Spinal stenosis in cervical region (03841023) Spinal stenosis, cervical region (M48.02) 06/21/20 Active confirmed Problem Spinal stenosis (21067793) Spinal stenosis, site unspecified (M48.00) 05/11/20 Active confirmed Problem Arthralgia of the pelvic region and thigh (938281081) Pain in right hip (M25.551) 03/12/20 Active confirmed Problem Pain of right shoulder region (finding) (7294046518) Pain in right shoulder (M25.511) 04/30/20 Active confirmed Problem Gastro-esophageal reflux disease without esophagitis (446817100) Gastro-esophagea l reflux disease without esophagitis (K21.9) 03/10/20 Active confirmed Problem Malignant neoplasm of female breast (547179235) Malignant neoplasm of unspecified site of unspecified female breast (C50.919) 03/12/20 Active confirmed Vital Signs Heart Rate 92 /min 05/31/2025 Temperature 96.7 degrees Fahrenheit 05/31/2025 Respiratory Rate 18 /min 03/11/2025 Height-cm 167.64 cm 05/31/2025 Blood pressure diastolic 80 mm Hg 05/31/2025 Oximetry 97 % 05/31/2025 Weight-kg 89.54 kg 05/31/2025 Height 66.00 in 05/31/2025 Blood pressure systolic 148 mm Hg 05/31/2025 Weight 197.4 lbs 05/31/2025 BMI 31.86 kg/m2 05/31/2025 Procedures Procedure Date Ordered Date Performed Result Body Sit e SPECIAL EYE EVALUATION 01/07/2025 01/07/2025 N/A Encounters Encounter Location Date Provider Diagnosis [address] [address] 07/03/2024 Dr. Evelyne Dubon Encounter for immunization [address] [address] 07/09/2024 Provider Migration Pain in left shoulder M25.[address] [address] 08/06/2024 Dr. Evelyne Dubon Pain in unspecified shoulder M25.519 ; Primary osteoarthritis, right shoulder M19.011 ; Pain in unspecified joint M25.50 ; Spinal stenosis, cervical region M48.02 and Pain in unspecified hand M79.[address] [address] 08/10/2024 Provider Migration Elevated erythrocyte sedimentation rate R70.0 ; Myalgia, unspecified site M79.10 ; Other specified abnormal immunological findings in serum R76.8 and Pain in unspecified joint M25.[address] [address] 08/20/2024 Dr. Evelyne Dubon Encounter for immunization [address] [address] 01/07/2025 Dr. Evelyne Dubon Encounter for immunization [address] [address] 02/01/2025 Dr. Evelyne Dubon Pain, joint, shoulder, right M25.511 ; Right wrist pain M25.531 ; YAYA positive R76.8 and Stenosis, cervical spine M48.[address] [address] 03/11/2025 Dr. Evelyne Dubon Ds DNA antibody positive R76.8 ; Essential (primary) hypertension I10 ; Bloating R14.0 ; Renal insufficiency N28.9 ; Prediabetes R73.03 ; Pain in right shoulder M25.511 ; Spinal stenosis, cervical region M48.02 and Anemia, unspecified D64.[address] [address] 05/31/2025 Dr. Evelyne Dubon Essential (primary) hypertension I10 ; Ds DNA antibody positive R76.8 ; Prediabetes R73.03 ; Anemia, unspecified D64.9 ; Right wrist pain M25.531 ; Pain, joint, shoulder, right M25.511 and Pain, joint, shoulder, left M25.[address] [address] 08/18/2024 Provider Migration [address] [address] 08/19/2024 Provider Migration [address] [address] 09/06/2024 Dulce Quiles [address] [address] 11/13/2024 Dr. Evelyne Dubon [address] [address] 01/25/2025 Dr. Evelyne Dubon [address] [address] 03/21/2025 Dr. Evelyne Dubon [address] [address] 04/09/2025 Dr. Evelyne Dubon [address] [address] 05/27/2025 Dr. Evelyne Dubon [address] [address] 06/01/2025 Dr. Evelyne Dubon Gout, unspecified cause, unspecified chronicity, unspecified site M10.9 Assessments Encounter Date Diagnosis (ICD Code) Assessment Notes Treatment Notes Treatment Clinical Notes Section Notes 07/03/2024 Encounter for immunization (ICD-10 - Z23) 07/09/2024 Pain in left shoulder (ICD-10 - M25.512) 08/06/2024 Primary osteoarthritis, right shoulder (ICD-10 - M19.011) 08/06/2024 Pain in unspecified joint (ICD-10 - M25.50) 08/06/2024 Pain in unspecified shoulder (ICD-10 - M25.519) 08/06/2024 Spinal stenosis, cervical region (ICD-10 - M48.02) 08/06/2024 Pain in unspecified hand (ICD-10 - M79.643) 08/10/2024 Pain in unspecified joint (ICD-10 - M25.50) 08/10/2024 Elevated erythrocyte sedimentation rate (ICD-10 - R70.0) 08/10/2024 Other specified abnormal immunological findings in serum (ICD-10 - R76.8) 08/10/2024 Myalgia, unspecified site (ICD-10 - M79.10) 08/20/2024 Encounter for immunization (ICD-10 - Z23) 01/07/2025 Encounter for immunization (ICD-10 - Z23) 02/01/2025 Right wrist pain (ICD-10 - M25.531) consider steroid taper but for now, use OTC voltaren gel. See rheumatology as directed. Had positive DS DNA. Suspect lupus may be dx. 02/01/2025 Pain, joint, shoulder, right (ICD-10 - M25.511) Arthrocentesis Instructions: Resume normal activity as tolerated. The lidocaine will wear off in a few hours, which means pain may return or even be worse because of the fluid injected into the joint. The steroid should start working in 2-3 days and may provide benefit for 3-6 months. Call immediately with any signs or symptoms of infection such as redness, swelling, fever, chills, or substantially increased pain to the area. from today's visit. 03/11/2025 Essential (primary) hypertension (ICD-10 - I10) 03/11/2025 Ds DNA antibody positive (ICD-10 - R76.8) 05/31/2025 Essential (primary) hypertension (ICD-10 - I10) 06/01/2025 Gout, unspecified cause, unspecified chronicity, unspecified site (ICD-10 - M10.9) 05/31/2025 Ds DNA antibody positive (ICD-10 - R76.8) 03/11/2025 Bloating (ICD-10 - R14.0) 02/01/2025 YAYA positive (ICD-10 - R76.8) 03/11/2025 Renal insufficiency (ICD-10 - N28.9) 05/31/2025 Prediabetes (ICD-10 - R73.03) 02/01/2025 Stenosis, cervical spine (ICD-10 - M48.02) f/u with neurosurgery as planned in a few months. 05/31/2025 Anemia, unspecified (ICD-10 - D64.9) 03/11/2025 Prediabetes (ICD-10 - R73.03) 03/11/2025 Pain in right shoulder (ICD-10 - M25.511) 05/31/2025 Right wrist pain (ICD-10 - M25.531) 05/31/2025 Pain, joint, shoulder, right (ICD-10 - M25.511) 03/11/2025 Spinal stenosis, cervical region (ICD-10 - M48.02) conitnue the cymbalta. 05/31/2025 Pain, joint, shoulder, left (ICD-10 - M25.512) 03/11/2025 Anemia, unspecified (ICD-10 - D64.9) 02/01/2025 Other Rec giving us a call about which doctor she is seeing in March - suspect it's rheumatology 03/11/2025 Other Shoulder pain, right. - Ongoing shoulder pain, improved compared to prior visits. - Offer to refer to orthopedic shoulder specialist if pain worsens. Consider ultrasound-guided injection if needed. Patient to notify if symptoms change. Neck pain/ Cervical Spinal Stenosis - Ongoing neck pain, under follow-up with Dr. Villalpando. - Continue follow-up with neurosurgery. Conservative management, no surgery planned at this time. Possible lupus: - Positive double stranded DNA antibody (11, with positive >9) and prior severe joint pain and inflammation. Possible early lupus or false positive. Under evaluation by rheumatology (Dr. Canales). - Continue rheumatology follow-up. Additional blood tests and monitoring as directed by specialist. Monitor for symptoms and complications. Anemia: - Mild anemia. - Order additional blood work to evaluate for iron, B12, thyroid, and other deficiencies. Patient to complete labs after Medicare coverage begins to avoid [id number] costs. Elevated blood sugar: - Elevated blood sugar (135), unclear if fasting or non-fasting. - Repeat fasting labs to clarify glycemic status. Patient instructed to fast for 8 hours prior to blood draw. Decreased kidney function: - Decreased kidney function noted on recent labs, possibly related to dehydration. - Repeat labs with adequate hydration and fasting. Monitor kidney function. Bloating and constipation: - Bloating and possible constipation. - Recommend daily fiber supplement (Citrucel or fiber gummies). Monitor bowel movements. If symptoms persist, consider abdominal X-ray. Breast cancer surveillance: - No evidence of recurrence, stable post-mastectomy status. - Continue regular follow-up and clinical exams. No mammogram required due to bilateral mastectomy. Vaccination record (Prevnar 20 documentation): - Prevnar 20 administered March 12, 2024, not present in state record. - Manual entry of vaccination into state system. Colonoscopy follow-up: - Prior colonoscopy, date uncertain (possibly 2016), no record available in current system. - Attempt to obtain procedural records from [facility] for documentation. -Had cologuard within the last 3 years. Plan Of Treatment Pending Test Test Name Order Date Vitamin B12 and Folate 03/11/2025 Iron and TIBC 03/11/2025 Hemoglobin A1c 03/11/2025 Thyroxine (T4) Free, Direct, S 5 TSH 03/11/2025 Ferritin, Serum 03/11/2025 Lipid Panel 03/11/2025 Comp. Metabolic Panel (14) 03/11/2025 Erythrocyte Sedimentation Rate 5 Basic Metabolic Panel 06/01/2025 Uric Acid 06/01/2025 Next Appt Details Provider Name:Dr. Evelyne hu, 09/16/2025 01:00:00 PM, [facility], [place], [address], [phone] Provider Name:Dr. Evelyne hu, 03/07/2026 10:30:00 AM, [facility], [place], [address], [phone] Insurance Providers Payer Name Payer Address Payer Phone Subscriber Number Group Number Insured Name Patient Relationship to Insured Coverage Start Date Coverage End Date [employer] RHC [address] [place] [address] [id number] Marisela Alberts Self - patient is the insured 5 Medications Administered Medication Instructions Date of Administration Dosage Notes Kenalog 02/01/2025 40 mg Kenalog 05/31/2025 40 mg Medical (General) History Medical History History ICD Code Pain in left shoulder M25.512 Elevated erythrocyte sedimentation rate R70.0 Myalgia, unspecified site M79.10 Encounter for screening for malignant ne oplasm of colon Z12.11 Pain in unspecified hand M79.643 Pain in unspecified joint M25.50 Asymptomatic menopausal state Z78.0 Spinal stenosis, cervical region M48.02 Other specified abnormal immunological f indings in serum R76.8 Encounter for screening mammogram for ma lignant neoplasm of breast Z12.31 Pain in right shoulder M25.511 Spinal stenosis, site unspecified M48.00 Unspecified abdominal pain R10.9 Encounter for general adult medical exam ination with abnormal findings Z00.01 Gastro-esophageal reflux disease without esophagitis K21.9 Pain in right hip M25.551 Encounter for immunization Z23 Unspecified lump in the right breast, un specified quadrant N63.10 Pain in unspecified shoulder M25.519 Paresthesia of skin R20.2 Pain in left hip M25.552 Abnormal findings on diagnostic imaging of other specified body structures R93.89 Encounter for general adult medical exam ination without abnormal findings Z00.00 Encounter for gynecological examination (general) (routine) without abnormal findings Z01.419 Essential (primary) hypertension I10 Anemia, unspecified D64.9 Primary osteoarthritis, right shoulder M 19.011 Prediabetes R73.03 Other abnormal and inconclusive findings on diagnostic imaging of breast R92.8 Hyperuricemia without signs of inflammat ory arthritis and tophaceous disease E79.0 Cervicalgia M54.2 Malignant neoplasm of unspecified site o f unspecified female breast C50.919 Surgical History Surgery Date(Month/Year) breast surgery ,notes : 10/28/23 bilateral breast recon with masectomy Colonoscopy 01/20/2017 delivery 01/20/2017 Breast biopsy ,notes : right breast, path invasive ductal carcinoma and carcinoma in [facility] 08/09/2023
[2025-06-25 12:13] LABS: Alanine Aminotransferase 24 U/L (6-35); Albumin Level 4.0 g/dL (3.5-5.1); Alkaline Phosphatase 105 U/L (38-126); Anion Gap 4 mmol/L (4-12); Aspartate Amino Transferase 28 U/L (14-36); Bilirubin,Total 0.4 mg/dL (0.2-1.3); Blood Urea Nitrogen 14 mg/dL (7-17); Calcium 9.1 mg/dL (8.4-10.2); Carbon Dioxide 31 mmol/L (22-30); Chloride 104 mmol/L (98-107); Estimated Glomerular Filt Rate > 60; Glucose 99 mg/dL (65-110); Potassium 4.9 mmol/L (3.4-5.0); Sodium 139 mmol/L (137-145); Total Protein 7.6 g/dL (6.3-8.2)
== END 2025-06-25 10:42 | disposition home or self-care (01) ==
LOC: ANHLAB 10:42
PROVIDERS: PCP Family Medicine; Visit Provider Internal Medicine Hematology & Oncology
DX: C50.811 Malignant neoplasm of overlapping sites of right female breast (principal)
CPT/HCPCS: 36415; 80053; 85025; 86300